=== PATIENT | male | born 1945 | race Caucasian/White ===

== ENCOUNTER 2016-03-15 07:26 | Outpatient (CLI) ==
[2014-11-26 09:33] VITALS: BMI 36.7
[2016-03-15 08:04] LABS: CREATININE 1.41 mg/dL (0.60-1.10)
--- NOTE | 2016-03-15 08:38 | US ---
EXAM: Bilateral carotid artery Doppler History: Dizziness. Technique: Multiple sonographic images through the bilateral internal carotid arteries were obtaine d. Color duplex Doppler was used to interrogate vascular flow. Findings: The right ICA peak systolic velocities within normal limits measuring 1.2 meters per second. The ri ght ICA/cca PSV ratio is normal at 1.7. The right vertebral artery is patent and demonstrates flow. Rhoades scale images demonstrate mild to moderate plaque buildup. The left ICA peak systolic velocities within normal limits measuring 0.8 meters per second. The lef t ICA/cca PSV ratio is normal at 0.9. The left vertebral artery is patent and demonstrates antegrad e flow. Rhoades scale images demonstrate mild plaque buildup. Impression: No significant hemodynamic stenosis of the bilateral internal carotid arteries.
--- NOTE | 2016-03-15 09:27 | CT ---
EXAM: CT head with and without contrast HISTORY: Dizziness COMPARISON: 07/26/2007 TECHNIQUE: CT head performed with and without contrast FINDINGS: There is no mass effect, midline shift, or intracranial hemmorhage. Dunn white different iation is preserved. There is no extra-axial collection. The ventricles, sulci, and basal cisterns are patent and symmetric. There is chronic ischemic disease of the white matter and cerebral volum e loss. There is no depressed calvarial fracture. The mastoid air cells are clear. There is mucous retention cyst or polyp right maxillary sinus. There are intracranial atherosclerotic calcification s. No abnormal area of enhancement. IMPRESSION: 1. No acute intracranial abnormality. No abnormal area of enhancement. 2. Chronic ischemic disease of the white matter and cerebral volume loss. 3. Sinus mucosal changes as described.
== END 2016-03-15 07:27 | disposition home or self-care (01) ==
LOC: RAD 07:26
PROVIDERS: ATTEND Internal Medicine
DX: R42 Dizziness and giddiness (principal)
CPT/HCPCS: 36415; 82565

== ENCOUNTER 2016-07-23 12:25 | Outpatient (CLI) | payer OTHER ==
[2014-11-26 09:33] VITALS: BMI 36.7
--- NOTE | 2016-07-23 13:13 | DI ---
EXAM: Two views of the chest. History: Acute bronchitis. Comparison: Chest radiograph 08/22/2015 Findings: Heart size is within normal limits. No focal consolidation. No appreciable pleural flui d and no pneumothorax. No acute osseous abnormalities. Impression: No acute cardiopulmonary process.
== END 2016-07-23 12:26 | disposition home or self-care (01) ==
LOC: RAD 12:25
PROVIDERS: ATTEND Emergency Medicine
DX: J20.9 Acute bronchitis, unspecified (principal)

== ENCOUNTER 2017-03-13 06:43 | Outpatient (CLI) ==
[2014-11-26 09:33] VITALS: BMI 36.7
--- NOTE | 2017-03-15 13:23 | ECHO2D ---
Date of Exam: 03/13/17 Ordering Physician: MAXIMILIANO GONZALEZ Room #: OP Reason for Echo: SOB, HTN, A-FIB M-Mode Normal Adult Results LV Dimensions Normal Adult Results AoV Opening excursions >1.6 >1.6 LVEDD-base- 3.5-5.8 4.6 Ao root dimensions 2.0-3.7 3.6 LVESD-base- 3.1-4.6 L. Atrium dimensions 1.9-3.8 5.4 Post. Wall thickness 0.8-1.1 1.4 IV septum (thickness) 0.7-1.2 1.3 Post. Wall excursion 0.72-1.3 NORMAL Septal motion NORMAL Systolic motion R. Ventricular cavity 1.5-2.0 NORMAL LVEF 60% 55% Paradoxical septal wall motion NORMAL 2-D : NORMAL LEFT VENTRICULAR CONTRACTILITY--NORMAL VALVES--ENLARGED LEFT ATRIAL CAVITY--NORMAL VALVES-NO EFFUSION, NO THROMBUS M-MODE: MV: NORMAL AV: NORMAL TV: NORMAL PV: CHAMBER SIZE: ENLARGED LEFT ATRIAL CAVITY WALL MOTION: NORMAL PERICARDIUM: NORMAL INTERPRETATION: 1. LEFT VENTRICULAR HYPERTROPHY WITH ENLARGED LEFT ATRIAL CAVITY 2. NORMAL LEFT VENTRICULAR CONTRACTILITY 3. NORMAL VALVES MTDD
== END 2017-03-13 06:44 | disposition home or self-care (01) ==
LOC: CAR 06:43
PROVIDERS: ATTEND Internal Medicine
DX: I48.91 Unspecified atrial fibrillation (principal); R06.02 Shortness of breath; I10 Essential (primary) hypertension
CPT/HCPCS: 93005; 93010

== ENCOUNTER 2017-09-06 13:00 | Outpatient (RCR) ==
[2014-11-26 09:33] VITALS: BMI 36.7
--- NOTE | 2017-08-23 16:23 | RS.OTEVAL ---
Subjective Date of Note: 08/23/17 Visit #: 1 Date of Evaluation: 08/23/17 Payer Source: MEDICARE Date of Onset/Injury/Change in Status: 11/23/13 Surgery Performed?: No Treatment Diagnosis: Shoulder pain Treatment Side (optional): Right *Precautions: At risk for falls Prior Level of Function.....Patient was independent with: ADL's, Self Care, Work /Vocation, Caregiving, Ambulation/Mobility, Community Integration/Access History of Condition/Mechanism of Injury: Possible rotator cuff tear, Rotator cuff Tendinitis Level of Function: (I) Functional Limitations: Reaching, Pulling, Lifting, Carrying Current Complaints/Gains: Pt has increased pain with RUE shoulder flexion. Pt has difficulty luz and doff his shirt, lifting items. Medical History Medical History: Hypertension, Diabetes Medical History Comments:: Pt reports he fell and hurt his right shoulder. He was trying to get the yards mowed and fell against the mower and his shoulder hit the ground. He has DMII, HTN, COPD Surgical History Comments:: Gall Bladder surgery, Femur fracture Patient's Goals: Decreased pain and be able to use the RUE Shoulder Pain Assessment - Pain Description Pain Description: Sharp Pain Location: Right shoulder pain. Increased pain with external rotation and shoulder flexion. Pain Description: sharp pain with movement Current Pain Intensity: 0 Worst Pain Intensity: 8 Other comments regarding pain:: Pt has increased pain with movement. Functional Outcome Measures UE Functional Index: 52 - G Codes & Severity Modifier G Codes: Current - CK. Goal is CI Source of G Code score: Carrying, moving, handling objects Observation - Observation Posture: Rounded Shoulders Handedness: Right Additional Comments: Pt has difficulty with toilet hygiene. Shoulder ROM: Left WFL's Shoulder Muscle Strength: Left WFL's - Right Shoulder ROM Right Shoulder Flexion: 135 Right Shoulder Extension: 46 Right Shoulder Abduction: 55 Right Shoulder Internal Rotation: 58 Right Shoulder External Rotation: 10 Right Shoulder ROM Limitations: Muscle Weakness, Pain - Left Shoulder Strength Left Shoulder Flexion: 4+ Good + Left Shoulder Extension: 4+ Good + Left Shoulder Abduction: 4+ Good + Left Shoulder Adduction: 4+ Good + Left Shoulder External Rotation: 4+ Good + Left Shoulder Internal Rotation: 4+ Good + - Right Shoulder Strength Right Shoulder Flexion: 3- Fair- Right Shoulder Extension: 3- Fair- Right Shoulder Abduction: 3- Fair- Right Shoulder Adduction: 3- Fair- Right Shoulder External Rotation: 2+ Poor+ Right Shoulder Internal Rotation: 3- Fair- Elbow ROM: Bilaterally WFL's Elbow Muscle Strength: Bilaterally WFL's Wrist ROM: Bilaterally WFL's Wrist Muscle Strength: Bilaterally WFL's Stage Driver Strength Left Hand Stage Driver Strength: 84.3# Right Hand Stage Driver Strength: 68.7# Dynamometer Testing Position: 2nd Position Palpation Palpation Findings: Tenderness, Trigger Point Sensation Right Upper Extremity: Intact/Normal Modalities - Treatment Modality: Ultrasound Parameters/Method Applied: .4 w/cm2 for 8 minutes after setup. Treatment Area: RUE Shoulder Patient Position: Sitting - Hot Pack/Cryotherapy Treatment: Cryotherapy Interventions - Exercise/Activities Exercise/Activities/Manual Therapy: Manual therapy to the pectoralis muscle of RUE shoulder. Manual therapy to posterior scapula. HOME EXERCISE PROGRAM: Ice to shoulder 2x day. - Objective Findings Objective Findings:: Pt has edema and pain of the right shoulder. Pt has limited AROM due to pain in the right shoulder. Pt has pain in Ext. Rot. and shoulder flexion. - Charges Timed Code Treatment Minutes: 60 Total Treatment Time: 66 Procedures billed for this date of service:: Eval-medium, MT , US, CP EVALUATION COMPLEXITY LEVEL: HISTORY: Medium, EXAM OF BODY SYSTEMS: Medium, CLINICAL DECISION MAKING: Medium Assessment Assessment: Pt has pain in the right shoulder and decreased functional use of the RUE. Patient Education: Education of diagnosis, Body/Joint mechanics, Home Exercise Program, Education of Plan of Care Rehab Potential: Good Problems/Comments: Difficulty with personal hygiene, difficulty opening a jar, throwing a ball, preparing food, cutting food, lifting groceries, Short Term Goals Goal #1: Decrease (R) shoulder pain to 6/10 at worst with movement. Goal to be met by: 08/30/17 Goal #2: To increase AROM of RUE external rotation to be 25 degrees Goal to be met by: 08/30/17 Goal #3: Pt to be independent with Home exercise program. Goal to be met by: 08/29/17 Goal #4: To increase strength of RUE to be 4-/5. Goal to be met by: 09/06/17 Penitentiary Goals Goal #1: Decrease (R) shoulder pain to 1/10 at worst with movement. Goal to be met by: 09/16/17 Goal #2: To increase AROM of RUE external rotation to be 45 degrees Goal to be met by: 09/16/17 Goal #3: Pt to be independent with Home exercise program. Goal to be met by: 09/16/17 Goal #4: To increase strength of RUE to be 4+/5. Goal to be met by: 09/13/17 Plan - Treatment to be provided Procedures: Therapeutic Exercises, Therapeutic Activity, Neuromuscular Rehab, Manual Therapy, Patient Education Modalities: Electrical Stimulation, Ultrasound/Phonophoresis, Class IV Laser, Cryotherapy, Hot Packs - Treatment Plan Frequency: 2 X week Duration: 3 weeks ORDER # VISITS AND/OR THROUGH DATE: 6 - Treatment Code (1) Shoulder pain, right Code(s): M25.511 - PAIN IN RIGHT SHOULDER Comments: M25.511 Right shoulder pain. (2) Stiffness of right shoulder joint Code(s): M25.611 - STIFFNESS OF RIGHT SHOULDER, NOT ELSEWHERE CLASSIFIED Comments: M25.611 Shoulder stiffness (3) Weakness generalized Code(s): R53.1 - WEAKNESS Comments: R53.1 Weakness
--- NOTE | 2017-08-28 12:57 | RS.OTDNOTE ---
Subjective Date of Note: 08/27/17 Visit #: 2 Date of Evaluation: 08/23/17 Payer Source: MEDICARE Treatment Diagnosis: Shoulder pain *Precautions: At risk for falls Current Complaints/Gains: Pt states he has fallen several times at home and states landing on his UE has caused increased c/o pain. States no pain or trouble with his UE following OT tx x several years ago. Pain Assessment - Pain Description Pain Description: Sharp Pain Location: Right shoulder pain. Increased pain with external rotation and shoulder flexion. Pain Description: sharp pain with movement Modalities - Treatment Modality: Ultrasound Parameters/Method Applied: .04w/cm2 x 10 mins Treatment Area: shoulder Patient Position: Sitting - Hot Pack/Cryotherapy Comments:: CP x 10 mins Interventions - Exercise/Activities Exercise/Activities/Manual Therapy: Manual therapy to the pectoralis muscle/ scapula of RUE with gentle PROM/stretching. Pt ed on and performed isometric ex 's -12/09. HOME EXERCISE PROGRAM: Ice to shoulder 2x day. - Objective Findings Objective Findings:: Pt has edema and pain of the right shoulder. Pt has limited AROM due to pain in the right shoulder. Pt has pain in Ext. Rot. and shoulder flexion. - Charges Timed Code Treatment Minutes: 46 Total Treatment Time: 46 Procedures billed for this date of service:: US CP MT Assessment Patient Education: Education of diagnosis, Body/Joint mechanics, Home Exercise Program, Home Safety, Activity Modification, Education of Plan of Care Patient demonstrates compliance with HEP?: Yes Short Term Goals Goal #1: Decrease (R) shoulder pain to 6/10 at worst with movement. Goal to be met by: 08/30/17 Progress towards goal: Progressing Goal #2: To increase AROM of RUE external rotation to be 25 degrees Goal to be met by: 08/30/17 Progress towards goal: Progressing Goal #3: Pt to be independent with Home exercise program. Goal to be met by: 08/29/17 Progress towards goal: Progressing Goal #4: To increase strength of RUE to be 4-/5. Goal to be met by: 09/06/17 Progress towards goal: Progressing [facility] Goals Goal #1: Decrease (R) shoulder pain to 1/10 at worst with movement. Goal to be met by: 09/16/17 Progress towards goal: Progressing Goal #2: To increase AROM of RUE external rotation to be 45 degrees Goal to be met by: 09/16/17 Progress towards goal: Progressing Goal #3: Pt to be independent with Home exercise program. Goal to be met by: 09/16/17 Progress towards goal: Progressing Goal #4: To increase strength of RUE to be 4+/5. Goal to be met by: 09/13/17 Progress towards goal: Progressing Plan PLAN OF CARE EXPIRES ON:: 09/16/17 ORDER # VISITS AND/OR THROUGH DATE: 6 PLAN: Cont POC to increase AROM/strength with decreased c/o pain.
--- NOTE | 2017-08-30 16:03 | RS.OTDNOTE ---
Subjective Date of Note: 08/30/17 Visit #: 3 Date of Evaluation: 08/23/17 Payer Source: MEDICARE Treatment Diagnosis: Shoulder pain *Precautions: At risk for falls Current Complaints/Gains: Pt states some decrease of pain. Pain Assessment - Pain Description Pain Description: Sharp Pain Location: Right shoulder pain. Increased pain with external rotation and shoulder flexion. Pain Description: sharp pain with movement Current Pain Intensity: 3 Worst Pain Intensity: 6 Modalities - Treatment Modality: Ultrasound Parameters/Method Applied: .04w/cm2 Patient Position: Sitting - Hot Pack/Cryotherapy Treatment: Cryotherapy (x10 mins following tx) Interventions - Exercise/Activities Exercise/Activities/Manual Therapy: Manual therapy to the pectoralis muscle/ scapula of RUE with gentle PROM/stretching. Pt ed on and performed isometric ex 's 12/09. HOME EXERCISE PROGRAM: Ice to shoulder 2x day. - Objective Findings Objective Findings:: Pt has edema and pain of the right shoulder. Pt has limited AROM due to pain in the right shoulder. Pt has pain in Ext. Rot. and shoulder flexion. - Charges Timed Code Treatment Minutes: 49 Total Treatment Time: 49 Procedures billed for this date of service:: CP US MT Assessment Patient Education: Education of diagnosis, Body/Joint mechanics, Home Exercise Program, Home Safety, Activity Modification, Education of Plan of Care Patient demonstrates compliance with HEP?: Yes Short Term Goals Goal #1: Decrease (R) shoulder pain to 6/10 at worst with movement. Goal to be met by: 08/30/17 Progress towards goal: Met Goal #2: To increase AROM of RUE external rotation to be 25 degrees Goal to be met by: 08/30/17 Progress towards goal: Progressing Goal #3: Pt to be independent with Home exercise program. Goal to be met by: 08/29/17 Progress towards goal: Progressing Goal #4: To increase strength of RUE to be 4-/5. Goal to be met by: 09/06/17 Progress towards goal: Progressing [facility] [place] Goals Goal #1: Decrease (R) shoulder pain to 1/10 at worst with movement. Goal to be met by: 09/16/17 Progress towards goal: Progressing Goal #2: To increase AROM of RUE external rotation to be 45 degrees Goal to be met by: 09/16/17 Progress towards goal: Progressing Goal #3: Pt to be independent with Home exercise program. Goal to be met by: 09/16/17 Progress towards goal: Progressing Goal #4: To increase strength of RUE to be 4+/5. Goal to be met by: 09/13/17 Progress towards goal: Progressing Plan PLAN OF CARE EXPIRES ON:: 09/16/17 ORDER # VISITS AND/OR THROUGH DATE: 6 PLAN: cont current POC to max fx I, strength and AROM of R UE
--- NOTE | 2017-09-03 15:03 | RS.OTDNOTE ---
Subjective Date of Note: 09/03/17 Visit #: 4 Date of Evaluation: 08/23/17 Payer Source: MEDICARE Treatment Diagnosis: Shoulder pain *Precautions: At risk for falls Current Complaints/Gains: Pt states he is able to tuck his shirt in but is stil unable to reach for his wallet without an increase of pain. Pain Assessment - Pain Description Pain Description: Tightness, Dull Pain Location: Right shoulder pain. Increased pain with external rotation and shoulder flexion. Pain Description: sharp pain with movement Current Pain Intensity: 2 Worst Pain Intensity: 4-5 Modalities - Treatment Modality: Ultrasound Parameters/Method Applied: 1.5w/cm2 x 12 mins Patient Position: Sitting - Hot Pack/Cryotherapy Treatment: Cryotherapy Comments:: CP X15 mins following tx Interventions - Exercise/Activities Exercise/Activities/Manual Therapy: Manual therapy to the pectoralis muscle/ scapula of RUE with gentle PROM/stretching. Pt ed on and performed isometric ex 's 12/09. HOME EXERCISE PROGRAM: Ice to shoulder 2x day. - Objective Findings Objective Findings:: Pt has edema and pain of the right shoulder. Pt has limited AROM due to pain in the right shoulder. Pt has pain in Ext. Rot. and shoulder flexion. - Charges Timed Code Treatment Minutes: 50 Total Treatment Time: 63 Procedures billed for this date of service:: CP US EX MT Assessment Patient Education: Education of diagnosis, Body/Joint mechanics, Home Exercise Program, Home Safety, Activity Modification, Education of Plan of Care Patient demonstrates compliance with HEP?: Yes Short Term Goals Goal #1: Decrease (R) shoulder pain to 6/10 at worst with movement. Goal to be met by: 08/30/17 Progress towards goal: Met Goal #2: To increase AROM of RUE external rotation to be 25 degrees Goal to be met by: 08/30/17 Progress towards goal: Partially Met Goal #3: Pt to be independent with Home exercise program. Goal to be met by: 08/29/17 Progress towards goal: Partially Met Goal #4: To increase strength of RUE to be 4-/5. Goal to be met by: 09/06/17 Progress towards goal: Met Alf Goals Goal #1: Decrease (R) shoulder pain to 1/10 at worst with movement. Goal to be met by: 09/16/17 Progress towards goal: Progressing Goal #2: To increase AROM of RUE external rotation to be 45 degrees Goal to be met by: 09/16/17 Progress towards goal: Progressing Goal #3: Pt to be independent with Home exercise program. Goal to be met by: 09/16/17 Progress towards goal: Progressing Goal #4: To increase strength of RUE to be 4+/5. Goal to be met by: 09/13/17 Progress towards goal: Progressing Plan PLAN OF CARE EXPIRES ON:: 09/16/17 ORDER # VISITS AND/OR THROUGH DATE: 6 PLAN: Cont per POC x 2 tx sesions
--- NOTE | 2017-09-06 13:56 | RS.OTDNOTE ---
Subjective Date of Note: 09/06/17 Visit #: 5 Date of Evaluation: 08/23/17 Payer Source: MEDICARE Treatment Diagnosis: Shoulder pain *Precautions: At risk for falls Current Complaints/Gains: Pt states his motion is better and he can now reach and pull/push the lever for the recliner. Pain Assessment - Pain Description Pain Description: Tightness, Dull Pain Location: Right shoulder pain. Increased pain with external rotation and shoulder flexion. Pain Description: sharp pain with movement Current Pain Intensity: 0 Worst Pain Intensity: 2-3 Modalities - Treatment Modality: Ultrasound Parameters/Method Applied: 1.5w/cm2 x 10 mins Patient Position: Sitting - Hot Pack/Cryotherapy Treatment: Cryotherapy (CP x 10 mins following tx) Interventions - Exercise/Activities Exercise/Activities/Manual Therapy: Manual therapy to the pectoralis muscle/ scapula of RUE with gentle PROM/stretching. Pt ed on and performed isometric ex 's 12/09. Red t-band ex of retraction and ER/IR performed x 12/09 this date with pt ed on HEP. HOME EXERCISE PROGRAM: Ice to shoulder 2x day. - Objective Findings Objective Findings:: Pt has edema and pain of the right shoulder. Pt has limited AROM due to pain in the right shoulder. Pt has pain in Ext. Rot. and shoulder flexion. - Charges Timed Code Treatment Minutes: 38 Total Treatment Time: 48 Procedures billed for this date of service:: CP US EX Assessment Patient Education: Education of diagnosis, Body/Joint mechanics, Home Exercise Program, Home Safety, Activity Modification, Education of Plan of Care Patient demonstrates compliance with HEP?: Yes Short Term Goals Goal #1: Decrease (R) shoulder pain to 6/10 at worst with movement. Goal to be met by: 08/30/17 Progress towards goal: Met Goal #2: To increase AROM of RUE external rotation to be 25 degrees Goal to be met by: 08/30/17 Progress towards goal: Met Goal #3: Pt to be independent with Home exercise program. Goal to be met by: 08/29/17 Progress towards goal: Partially Met Goal #4: To increase strength of RUE to be 4-/5. Goal to be met by: 09/06/17 Progress towards goal: Met Assisted Goals Goal #1: Decrease (R) shoulder pain to 1/10 at worst with movement. Goal to be met by: 09/16/17 Progress towards goal: Progressing Goal #2: To increase AROM of RUE external rotation to be 45 degrees Goal to be met by: 09/16/17 Progress towards goal: Partially Met Goal #3: Pt to be independent with Home exercise program. Goal to be met by: 09/16/17 Progress towards goal: Partially Met Goal #4: To increase strength of RUE to be 4+/5. Goal to be met by: 09/13/17 Progress towards goal: Partially Met Plan PLAN OF CARE EXPIRES ON:: 09/16/17 ORDER # VISITS AND/OR THROUGH DATE: 6 PLAN: Cont x1 tx session and DC pt I with HEP.
== END 2017-09-07 23:59 ==
PROVIDERS: ATTEND Orthopaedic Surgery
DX: M75.101 Unspecified rotator cuff tear or rupture of right shoulder, not specified as traumatic (principal); M75.81 Other shoulder lesions, right shoulder

== ENCOUNTER 2017-09-24 13:00 | Outpatient (RCR) ==
[2014-11-26 09:33] VITALS: BMI 36.7
--- NOTE | 2017-09-09 14:10 | RS.OTDNOTE ---
Subjective Date of Note: 09/09/17 Visit #: 6 Date of Evaluation: 08/23/17 Payer Source: MEDICARE Treatment Diagnosis: Shoulder pain *Precautions: At risk for falls Current Complaints/Gains: Pt states UE feels better but states he still does have some trouble with reaching into his pocket for car keys and his wallet. States and agrees to asking for additional visit approval from MD with vm left this date. Pain Assessment - Pain Description Pain Description: Tightness, Dull, Throbbing, Aching Pain Location: Right shoulder pain. Increased pain with external rotation and shoulder flexion. Pain Description: sharp pain with movement Current Pain Intensity: 0 Worst Pain Intensity: 6 Modalities - Treatment Modality: Ultrasound Parameters/Method Applied: 1.5w/cm2 x `10 mins to AC joint and deltoids Treatment Area: shoulder Patient Position: Sitting - Hot Pack/Cryotherapy Treatment: Cryotherapy Comments:: CP x 10 mins following therapy Interventions - Exercise/Activities Exercise/Activities/Manual Therapy: Manual therapy to the pectoralis muscle/ scapula of RUE with gentle PROM/stretching. Pt ed on and performed isometric ex 's 12/10. Red t-band ex of retraction and ER/IR performed x 12/10 this date with pt ed on HEP including door frame stretches and towell stretch (IR/ER) behind his back. HOME EXERCISE PROGRAM: Ice to shoulder 2x day. - Objective Findings Objective Findings:: Pt has edema and pain of the right shoulder. Pt has limited AROM due to pain in the right shoulder. Pt has pain in Ext. Rot. and shoulder flexion. - Charges Timed Code Treatment Minutes: 49 Total Treatment Time: 57 Procedures billed for this date of service:: CP US MT EX Assessment Patient Education: Education of diagnosis, Body/Joint mechanics, Home Exercise Program, Home Safety, Activity Modification, Education of Plan of Care Patient demonstrates compliance with HEP?: Yes Short Term Goals Goal #1: Decrease (R) shoulder pain to 6/10 at worst with movement. Goal to be met by: 08/30/17 Progress towards goal: Met Goal #2: To increase AROM of RUE external rotation to be 25 degrees Goal to be met by: 08/30/17 Progress towards goal: Met Goal #3: Pt to be independent with Home exercise program. Goal to be met by: 08/29/17 Progress towards goal: Partially Met Goal #4: To increase strength of RUE to be 4-/5. Goal to be met by: 09/06/17 Progress towards goal: Met Reporting Specialist Goals Goal #1: Decrease (R) shoulder pain to 1/10 at worst with movement. Goal to be met by: 09/16/17 Progress towards goal: Progressing Goal #2: To increase AROM of RUE external rotation to be 45 degrees Goal to be met by: 09/16/17 Progress towards goal: Partially Met Goal #3: Pt to be independent with Home exercise program. Goal to be met by: 09/16/17 Progress towards goal: Partially Met Goal #4: To increase strength of RUE to be 4+/5. Goal to be met by: 09/13/17 Progress towards goal: Partially Met Plan PLAN OF CARE EXPIRES ON:: 09/16/17 ORDER # VISITS AND/OR THROUGH DATE: 6 PLAN: Voicemail left at MD office for additional order/visits
--- NOTE | 2017-09-10 10:10 | RS.OTCNOTE ---
OT Case Note Date of Note: 09/10/17 Title: New Orders for 2X wk for 3 WKS Note: Occupational therapy requested orders for patient to continue with outpatient shoulder therapy 2X wk x 3 Wks to decrease his pain and increase his abduction and extension of RUE shoulder. Pt orders to continue through October.
--- NOTE | 2017-09-13 14:33 | RS.OTDNOTE ---
Subjective Date of Note: 09/13/17 Visit #: 7 Date of Evaluation: 08/23/17 Payer Source: MEDICARE Treatment Diagnosis: Shoulder pain *Precautions: At risk for falls Current Complaints/Gains: Pain in shoulder with RUE shoulder extension at 2/10. Pt reported it just felt sore with when he pulls his arm back. The sharp pain is not sharp any more. Pt tolerated manual therapy to the Teres major muscle, subscapularis muscles, Deltoid. Pt pain decreased to 0/10 until he moved into RUE shoulder extension and then it was just soreness. Pain Assessment - Pain Description Pain Description: Tightness, Dull, Throbbing, Aching Pain Location: Right shoulder pain. Increased pain with external rotation and shoulder flexion. Pain Description: sharp pain with movement Current Pain Intensity: 2 Worst Pain Intensity: 4 Modalities - Treatment Modality: Ultrasound Parameters/Method Applied: .4 w/cm2 to the RUE teres major, subscapularis for 8 minutes. Treatment Area: RUE teres major, subscapularis Patient Position: Sitting - Hot Pack/Cryotherapy Treatment: Hot Pack Interventions - Exercise/Activities Exercise/Activities/Manual Therapy: Manual therapy to the Teres minor, subscapularis, & Deltoid. Pt reaching for ceiling with RUE to complete extension. Reaching behind himself to put his RUE in his back pocket. HOME EXERCISE PROGRAM: Ice to shoulder 2x day. - Objective Findings Objective Findings:: Pt has edema and pain of the right shoulder. Pt has limited AROM due to pain in the right shoulder. Pt has pain in Ext. Rot. and shoulder flexion. - Charges Timed Code Treatment Minutes: 60 Total Treatment Time: 65 Procedures billed for this date of service:: US, HP, MT x 2 Assessment Assessment: Pt reported it felt better following treatment. He reported he was a little sore but he thought it was better. Problems/Comments: Pt reports that his shoulder continues to get better. He has some pain that is a 2/10 in his RUE shoulder when he moves in shoulder extension and abduction, and flexion. Patient demonstrates compliance with HEP?: Yes Short Term Goals Goal #1: Decrease (R) shoulder pain to 6/10 at worst with movement. Goal to be met by: 08/30/17 Progress towards goal: Met Goal #2: To increase AROM of RUE external rotation to be 25 degrees Goal to be met by: 08/30/17 Progress towards goal: Met Goal #3: Pt to be independent with Home exercise program. Goal to be met by: 08/29/17 Progress towards goal: Partially Met Goal #4: To increase strength of RUE to be 4-/5. 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 Goal to be met by: 09/16/17 Progress towards goal: Progressing Goal #2: To increase AROM of RUE external rotation to be 45 degrees Goal to be met by: 09/16/17 Progress towards goal: Partially Met Goal #3: Pt to be independent with Home exercise program. Goal to be met by: 09/16/17 Progress towards goal: Partially Met Goal #4: To increase strength of RUE to be 4+/5. Goal to be met by: 09/13/17 Progress towards goal: Partially Met Plan PLAN OF CARE EXPIRES ON:: 10/09/17 ORDER # VISITS AND/OR THROUGH DATE: 5 PLAN: Pt to increase RUE to have AROM WFL. Pt is improving in AROM of RUE and increase in his strength to 4+/5.
--- NOTE | 2017-09-18 08:29 | RS.OTDNOTE ---
Subjective Date of Note: 09/17/17 Visit #: 8 Date of Evaluation: 08/23/17 Payer Source: MEDICARE Treatment Diagnosis: Shoulder pain *Precautions: At risk for falls Current Complaints/Gains: States UE is better but he still has trouble with tucking his shirt into his pants. Pain Assessment - Pain Description Pain Description: Tightness, Dull, Throbbing, Aching Pain Location: Right shoulder pain. Increased pain with external rotation and shoulder flexion. Pain Description: sharp pain with movement Modalities - Treatment Modality: US with ES (Comb.) Parameters/Method Applied: x10 mins to pt tolerance(Estim)-US at 1.5w/cm2 Treatment Area: shoulder Patient Position: Sitting - Hot Pack/Cryotherapy Treatment: Cryotherapy (CP x 10 mins) Interventions - Exercise/Activities Exercise/Activities/Manual Therapy: Manual therapy to the Teres minor, subscapularis, & Deltoid. Pt reaching for ceiling with RUE to complete extension. Reaching behind himself to put his RUE in his back pocket. PROM/ gentle prolonged stretching performed. HOME EXERCISE PROGRAM: Ice to shoulder 2x day. - Objective Findings Objective Findings:: Pt demo good improvement with AROM and decreased c/o pain. - Charges Timed Code Treatment Minutes: 42 Total Treatment Time: 52 Procedures billed for this date of service:: CP US-combo MT Assessment Patient Education: Education of diagnosis, Body/Joint mechanics, Home Exercise Program, Home Safety, Activity Modification, Education of Plan of Care Patient demonstrates compliance with HEP?: Yes Short Term Goals Goal #1: Decrease (R) shoulder pain to 6/10 at worst with movement. Goal to be met by: 08/30/17 Progress towards goal: Met Goal #2: To increase AROM of RUE external rotation to be 25 degrees Goal to be met by: 08/30/17 Progress towards goal: Met Goal #3: Pt to be independent with Home exercise program. Goal to be met by: 08/29/17 Progress towards goal: Met Goal #4: To increase strength of RUE to be 4-/5. 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 Goal to be met by: 10/09/17 Progress towards goal: Progressing Goal #2: To increase AROM of RUE external rotation to be 45 degrees Goal to be met by: 10/09/17 Progress towards goal: Partially Met Goal #3: Pt to be independent with Home exercise program. Goal to be met by: 10/09/17 Progress towards goal: Partially Met Comments: PRE's Goal #4: To increase strength of RUE to be 4+/5. Goal to be met by: 09/13/17 Progress towards goal: Partially Met Plan PLAN OF CARE EXPIRES ON:: 10/09/17 ORDER # VISITS AND/OR THROUGH DATE: 12 PLAN: Pt making great progress. Pt received continuation orders on 09/09/17. Pt orders extended to 10/09/17 or 12 visits.
--- NOTE | 2017-09-20 15:57 | RS.OTDNOTE ---
Subjective Date of Note: 09/20/17 Visit #: 9 Date of Evaluation: 08/23/17 Payer Source: MEDICARE Treatment Diagnosis: Shoulder pain *Precautions: At risk for falls Current Complaints/Gains: Soreness in the deltoid when he reaches behind himself to put his wallet in his pocket. Pain Assessment - Pain Description Pain Description: Tightness, Dull, Throbbing, Aching Pain Location: Right shoulder pain. Increased pain with external rotation and shoulder flexion. Pain Description: sharp pain with movement Current Pain Intensity: 3 Other comments regarding pain:: He reports it's getting better. Modalities - Treatment Modality: US with ES (Comb.) Parameters/Method Applied: 1.5 w/cm2 for 8 minutes at 22 m/amps to deltoid. Treatment Area: RUE deltoid muscle. Patient Position: Supine Interventions - Exercise/Activities Exercise/Activities/Manual Therapy: Manual therapy to the Teres minor, subscapularis, & Deltoid. Pt reaching for ceiling with RUE to complete extension. Reaching behind himself to put his RUE in his back pocket. PROM/ gentle prolonged stretching performed. HOME EXERCISE PROGRAM: Ice to shoulder 2x day. - Objective Findings Objective Findings:: Pt demo good improvement with AROM and decreased c/o pain. - Charges Timed Code Treatment Minutes: 62 Total Treatment Time: 62 Procedures billed for this date of service:: US combo, MT x 3 Assessment Assessment: Pt reports his RUE is improving. He still has some soreness in the RUE. Patient Education: Education of diagnosis, Home Exercise Program, Education of Plan of Care Problems/Comments: Pt has soreness with RUE shoulder extension. Patient demonstrates compliance with HEP?: Yes Short Term Goals Goal #1: Decrease (R) shoulder pain to 6/10 at worst with movement. Goal to be met by: 08/30/17 Progress towards goal: Met Goal #2: To increase AROM of RUE external rotation to be 25 degrees Goal to be met by: 08/30/17 Progress towards goal: Met Goal #3: Pt to be independent with Home exercise program. Goal to be met by: 08/29/17 Progress towards goal: Met Goal #4: To increase strength of RUE to be 4-/5. Goal to be met by: 09/06/17 Progress towards goal: Met Supervisor Customer Complaint Service Goals Goal #1: Decrease (R) shoulder pain to 1/10 at worst with movement. Goal to be met by: 10/09/17 Progress towards goal: Progressing Goal #2: To increase AROM of RUE external rotation to be 45 degrees Goal to be met by: 10/09/17 Progress towards goal: Partially Met Goal #3: Pt to be independent with Home exercise program. Goal to be met by: 10/09/17 Progress towards goal: Partially Met Goal #4: To increase strength of RUE to be 4+/5. Goal to be met by: 09/13/17 Progress towards goal: Partially Met Plan PLAN OF CARE EXPIRES ON:: 10/04/17 ORDER # VISITS AND/OR THROUGH DATE: 12 PLAN: To get the RUE shoudler pain free and have full RUE shoulder flexion and be able to use with full AROM.
--- NOTE | 2017-09-25 15:43 | RS.OTDCSUM ---
Subjective Date of Discharge: 09/24/17 Date of Evaluation: 08/23/17 Number of Visits: 11 Treatment Diagnosis: Right shoulder apin Current Level of Function: 13% impaired Current Complaints/Gains: Pt reports therapy has really helped him. He states he could not reach is head prior to therapy. He states his pain at 2/10 when it bothers him the most. Pain Assessment - Pain Description Pain Description: Tightness, Dull, Throbbing, Aching Pain Location: Right shoulder pain. Increased pain with external rotation and shoulder flexion. Pain Description: sharp pain with movement Current Pain Intensity: 0 Worst Pain Intensity: 2 Functional Outcome Measures UE Functional Index: 13 - G Codes & Severity Modifier G Codes: Goal was CI, Discharge was CI. Source of G Code score: Carry, moving, and handling objects Observation - Observation Posture: Forward Head Handedness: Right Shoulder ROM: Bilaterally WFL's Shoulder Muscle Strength: Bilaterally WFL's Elbow ROM: Bilaterally WFL's Elbow Muscle Strength: Bilaterally WFL's Wrist ROM: Bilaterally WFL's Wrist Muscle Strength: Bilaterally WFL's Palpation Palpation Findings: Tenderness Comments:: Tenderness with RUE shoulder extension. Sensation Left Upper Extremity: Intact/Normal Sensation Description: Within Normal Limits Interventions - Exercise/Activities Exercise/Activities/Manual Therapy: Pt reaching for ceiling with RUE to complete extension. Reaching behind himself to put his RUE in his back pocket and towel stretch for ER/IR PROM/gentle prolonged stretching performed. HOME EXERCISE PROGRAM: Ice to shoulder 2x day. - Other Treatment/Services Treatment Details: Pt has met 4/4 STG's and 3/4 LTGs. Pt has pain with RUE shoulder extension. - Objective Findings Objective Findings:: Pt demo good improvement with AROM and decreased c/o pain. - Charges Timed Code Treatment Minutes: . Total Treatment Time: . Procedures billed for this date of service:: . Assessment Assessment: Pt has made great progress toward his goals. Pt has met 4/4 Short term goals. 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 Patient Education: Education of diagnosis, Body/Joint mechanics, Home Exercise Program, Home Safety, Education of Plan of Care Rehab Potential: Good Problems/Comments: Pt continues with 2/10 pain when he completes RUE shoulder extension to reach in his back pocket. Short Term Goals Goal #1: Decrease (R) shoulder pain to 6/10 at worst with movement. Goal to be met by: 08/30/17 Progress towards goal: Met Goal #2: To increase AROM of RUE external rotation to be 25 degrees Goal to be met by: 08/30/17 Progress towards goal: Met Goal #3: Pt to be independent with Home exercise program. Goal to be met by: 08/29/17 Progress towards goal: Met Goal #4: To increase strength of RUE to be 4-/5. 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 Goal to be met by: 10/09/17 Progress towards goal: Progressing Goal #2: To increase AROM of RUE external rotation to be 45 degrees Goal to be met by: 10/09/17 Progress towards goal: Met Goal #3: Pt to be independent with Home exercise program. Goal to be met by: 10/09/17 Progress towards goal: Met Goal #4: To increase strength of RUE to be 4+/5. Goal to be met by: 09/13/17 Progress towards goal: Met Plan Reason for Discharge:: All Goals Met (Pt is ready to be discharged.)
== END 2017-10-08 23:59 ==
PROVIDERS: ATTEND Orthopaedic Surgery
DX: M75.101 Unspecified rotator cuff tear or rupture of right shoulder, not specified as traumatic (principal); M75.81 Other shoulder lesions, right shoulder

== ENCOUNTER 2017-11-05 11:29 | Outpatient (CLI) | payer OTHER ==
[2014-11-26 09:33] VITALS: BMI 36.7
--- NOTE | 2017-11-05 12:42 | CT ---
EXAM: CT of the abdomen pelvis without contrast History: Right flank pain. Comparison: CT abdomen pelvis 11/26/2014 Technique: Multiplanar CT images through the abdomen pelvis were obtained without the administration of IV contrast. Findings: Coronary calcifications. Subsegmental atelectasis seen within the lower lungs. No acute osseous abnormalities. Status post cholecystectomy. No focal liver or splenic lesions. Mild circumferential wall thickenin g of the distal esophagus. There is minimal stranding seen adjacent to the pancreatic body. Adrenal g lands are unremarkable. Multiple left renal calculi with the largest measuring 4 mm. A few punctate 1 mm right renal calculi. Small bilateral renal cysts again noted. No ureteral calculi and no hydr onephrosis. No dilated loops of bowel. No free air and no ascites. Bladder is not well distended. Mild circumferential bladder wall thickening but the bladder is not well distended. Prostate is not s ignificantly enlarged. Small fat-containing bilateral inguinal hernias. Colonic diverticulosis. Th e appendix is normal. No free air and no ascites. Impression: 1. Nonobstructing bilateral nephrolithiasis. 2. Colonic diverticulosis with no CT evidence for diverticulitis. 3. Mild circumferential wall thickening of the distal esophagus. Consider correlation with nonemerg ent upper endoscopy to evaluate for esophagitis. 4. Mild circumferential bladder wall thickening probably related to the underdistended state but can not exclude cystitis. 5. Minimal stranding seen adjacent to the pancreatic body could represent scarring or early changes of pancreatitis. Correlate with pancreatic enzymes. 6. Fat-containing bilateral inguinal hernias.
== END 2017-11-05 11:30 | disposition home or self-care (01) ==
LOC: RAD 11:29
PROVIDERS: ATTEND Internal Medicine
DX: R10.9 Unspecified abdominal pain (principal)
CPT/HCPCS: 74176; 81001

== ENCOUNTER 2017-12-30 11:25 | Day surgery (SDC) ==
[2014-11-26 09:33] VITALS: BMI 36.7
[2017-12-30 11:41] VITALS: TEMP 97.8
[2017-12-30] MEDS ORDERED: LIDOCAINE 1% 20 ML MDV ID STA (11:42)
[2017-12-30] MEDS ORDERED: DIPRIVAN 20 ML VIAL IVP ONE (11:53)
[2017-12-30] MEDS ORDERED: VERSED ONE (11:53)
[2017-12-30] MEDS ORDERED: SUBLIMAZE ONE (11:53)
[2017-12-30 14:18] VITALS: BP 132/67
--- NOTE | 2017-12-31 10:21 | OP ---
PROCEDURE: EGD (ESOPHAGOGASTRODUODENOSCOPY). ENDOSCOPIST: Ben LOPEZ M.D. INDICATION: ABNORMAL CT. INSTRUMENT: [id number]. MEDICATION: PER ANESTHESIA. PROCEDURE: The patient was positioned for endoscopy. The oropharynx was intubated with the endoscope and advanced throught the oropharynx into the esophagus and from there to the duodenum. The duodenum was grossly normal. The pylorus was patent. The antrum was normal. The retroflex exam reveals a normal cardia. The distal esophagus was normal. Specifically, no evidence for mass or constricting lesion. The Z-line was at 43 cm. He tolerated the procedure without immediate complication. PLAN: 1. Repeat as needed. CC: DR. LISA GREEN
== END 2017-12-30 13:15 | disposition home or self-care (01) ==
LOC: SURG 11:25
PROVIDERS: ATTEND Internal Medicine Gastroenterology
DX: R93.89 Abnormal findings on diagnostic imaging of other specified body structures (principal)

== ENCOUNTER 2018-05-06 13:55 | Emergency (ER) ==
[2018-05-06 14:01] VITALS: BP 177/82; TEMP 97.7; BMI 42.6
--- NOTE | 2018-05-06 14:45 | ED.PDOC ---
General ED Provider: Dr. PARIS SPAULDING Chief Complaint: Palpitations Stated Complaint: Chest palpitation/chest vibration. Patient states he experiences a feeling like there is a sensation of a vibration in the left side of his chest. He states this has occurred intermittently for over 1 year but today it felt stronger and lasted longer. Denies nausea or dyspnea but felt dizz states he was a little dizzy. States earlier today at Dr Paige office for blood test and mentioned his symptoms and was told to go to the ER Time Seen by Physician: 14:25 Mode of Arrival: Walk-In Information Source: Patient Exam Limitations: No limitations Primary Care Provider: MAXIMILIANO GONZALEZ Nursing and Triage Documentation Reviewed and Agree: Yes Does patient meet sepsis criteria?: No System Inflammatory Response Syndrome: Not Applicable Sepsis Protocol: For patient's 13 years and over: Temp is 96.8 and below OR 101 and greater Pulse >90 BPM Resp >20/minute Acutely Altered Mental Status Are patient's symptoms suggestive of a new infection, such as: -Pneumonia -Skin, Soft Tissue -Endocarditis -UTI -Bone, Joint Infection -Implantable Device -Acute Abdominal Infection -Wound Infection -Meningitis -Blood Stream Catheter Infection -Unknown Review of Systems - Review Of Systems Constitutional: Reports: No symptoms Eyes: Reports: No symptoms Ears, Nose, Mouth, Throat: Reports: No symptoms Respiratory: Reports: No symptoms Cardiac: Reports: No symptoms, Other (Chest vibration sensation ) GI: Reports: No symptoms : Reports: No symptoms Musculoskeletal: Reports: No symptoms Skin: Reports: No symptoms Neurological: Reports: No symptoms Endocrine: Reports: No symptoms Hematologic/Lymphatic: Reports: No symptoms All Other Systems: Reviewed and Negative Past Medical History - Past Medical History Endocrine: Reports: DM 2, Dyslipidemia Cardiovascular: Reports: CAD, [place], Hypertension, A-Fib Respiratory: Reports: None Hematological: Reports: None Gastrointestinal: Reports: None Genitourinary: Reports: Kidney stones Neuro/Psych: Reports: None Musculoskeletal: Reports: None Cancer: Reports: None - Surgical History General Surgical History: Reports: Orthopedic - Family History Family History: Reports: Unknown - Social History Smoking Status: Never smoker Hx Substance Use: No Alcohol Screening: None Physical Exam - Physical Exam Appearance: Well-appearing, No pain distress, Well-nourished Eyes: NAOMIE, EOMI, Conjunctiva clear ENT: Ears normal, Nose normal, Oropharynx normal Respiratory: Airway patent, Breath sounds clear, Breath sounds equal, Respirations nonlabored Cardiovascular: Pulses normal, No rub, No murmur, Irregular rhythm (no palpable abnormality of chest) GI/: Soft, Nontender, No masses, Bowel sounds normal, No Organomegaly Musculoskeletal: Normal strength, ROM intact, No edema, No calf tenderness Skin: Warm, Dry, Normal color Neurological: Sensation intact, Motor intact, Reflexes intact, Cranial nerves intact, Alert, Oriented Psychiatric: Affect appropriate, Mood appropriate Interpretation - Radiology Interpretation Radiology Interpretation By: Radiologist Radiology Results: Negative Exam Interpreted: CXR - EKG Interpretation Time of EKG #1: 14:00 Rhythm: Other (a fib controlled VR) Critical Care Note - Critical Care Note Total Time (mins): 60 Course - Course Hematology/Chemistry: 05/06/18 15:00 05/06/18 15:00 Orders, Labs, Meds: Lab Review 05/06/18 05/06/18 05/06/18 15:00 15:00 15:00 WBC 10.55 H RBC 5.24 Hgb 15.0 Hct 46.6 MCV 88.9 MCH 28.6 MCHC 32.2 RDW Coeff of Niall 13.9 Plt Count 205 Immature Gran % (Auto) 0.5 Neut % (Auto) 67.2 Lymph % (Auto) 22.8 Aurora % (Auto) 7.2 Eos % (Auto) 1.5 Baso % (Auto) 0.8 Immature Gran # (Auto) 0.1 Neut # (Auto) 7.1 H Lymph # (Auto) 2.4 Aurora # (Auto) 0.8 Eos # (Auto) 0.2 Baso # (Auto) 0.1 PT 23.5 H INR 2.41 Sodium 138.8 Potassium 4.07 Chloride 97.4 L Carbon Dioxide 29.7 Anion Gap 15.77 BUN 21.3 H Creatinine 1.35 H Estimated GFR (MDRD) 52.00 BUN/Creatinine Ratio 15.77 Glucose 242.6 H Calcium 9.15 Total Bilirubin 0.73 AST 20.5 ALT 20.2 Alkaline Phosphatase 92.3 Total Creatine Kinase 65.1 Troponin I < 0.012 Total Protein 7.35 Albumin 4.35 Globulin 3.00 Albumin/Globulin Ratio 1.45 Orders Category Date Time Status EKG-(ED ONLY) Stat CARDIO 05/06/18 15:23 Completed CBC W/ AUTO DIFF Stat LAB 05/06/18 15:00 Completed CMP [COMPREHENSIVE METABOLIC PANEL] Stat LAB 05/06/18 15:00 Completed CPK [CREATINE KINASE] Stat LAB 05/06/18 15:00 Completed PT WITH INR Stat LAB 05/06/18 15:00 Completed TROPONIN I Stat LAB 05/06/18 15:00 Completed CHEST, 2 VIEWS PA & LAT Stat RADS 05/06/18 14:46 Completed Vital Signs: Temp Pulse Resp BP Pulse Ox 05/06/18 13:56 97.7 F 71 20 177/82 H 92 L TERRENCE Risk Score TERRENCE Risk Score: Risk Score Odds of by 30D 0 0.1 (0.1-0.2) 1 0.3 (0.2-0.3) 2 0.4 (0.3-0.5) 3 0.7 (0.6-0.9) 4 1.2 (1.0-1.5) 5 2.2 (1.9-2.6) 6 3.0 (2.5-3.6) 7 4.8 (3.8-6.1) Departure - Departure Time of Disposition: 18:30 Disposition: HOME SELF-CARE Discharge Problem: Atrial fibrillation, Chest discomfort Instructions: A-fib (Atrial Fibrillation) (ED), Chest Pain (ED) Condition: Good Pt referred to PMD for follow-up: Yes (next week) IPMP verified?: No Additional Instructions: Remain on existing meds See Dr Gonzalez in next week for additional evaluation of chest vibration sensation Allergies/Adverse Reactions: Allergies No Known Allergies Allergy (Verified 05/06/18 14:01) Home Medications: Ambulatory Orders Alprazolam [Xanax] 0.5 mg PO BEDTIME PRN 09/19/14 Digoxin 250 mcg PO DAILY 09/19/14 Insulin Glargine,Hum.rec.anlog [Lantus Solostar] 120 unit SQ BEDTIME 09/19/14 Pravastatin Sodium [Pravachol] 40 mg PO BEDTIME 09/19/14 Tamsulosin HCl [Flomax] 0.4 mg PO DAILY 09/19/14 Warfarin Sodium [Coumadin] 6 mg PO DAILY 09/19/14 Furosemide [Lasix Tab] 20 mg PO QDAC 11/26/14 Levothyroxine Sodium [Synthroid] 25 mcg PO QDAC 11/26/14 Metoprolol Tartrate [Lopressor] 50 mg PO BID 11/26/14 Pantoprazole Sodium [Protonix] 40 mg PO QDAC 11/26/14 Clonidine HCl 0.2 mg PO BEDTIME 12/27/17 Metformin HCl 1,000 mg PO BID 12/27/17 Ropinirole HCl [Requip Xl] 3 mg PO BEDTIME 12/27/17 Disposition Discussed With: Patient, Family
--- NOTE | 2018-05-06 15:06 | DI ---
EXAM: Two views of the chest. History: Chest palpitations Comparison: Chest radiograph 07/23/2016 Findings: Heart size is upper limits of normal. No focal consolidation. No appreciable pleural flu id and no pneumothorax. No acute osseous abnormalities. Atherosclerotic vascular calcifications. Impression: No acute cardiopulmonary process. No change compared to the prior study
== END 2018-05-06 17:25 | disposition home or self-care (01) ==
LOC: ED 13:55
DX: I48.91 Unspecified atrial fibrillation (principal); R07.89 Other chest pain; R42 Dizziness and giddiness; E11.9 Type 2 diabetes mellitus without complications; E78.5 Hyperlipidemia, unspecified; I25.10 Atherosclerotic heart disease of native coronary artery without angina pectoris; I25.2 Old myocardial infarction; I10 Essential (primary) hypertension; Z79.899 Other long term (current) drug therapy
CPT/HCPCS: 36415; 80053; 82550; 84484; 85025; 85610; 93005; 93010; 99283

== ENCOUNTER 2019-02-16 16:08 | Inpatient (IN) ==
[2019-02-16] MEDS ORDERED: VASOTEC IV IVP STA (16:45)
--- NOTE | 2019-02-16 18:07 | ED.PDOC ---
General ED Provider: Dr. DONTRELL VALADEZ Chief Complaint: Hypertension Stated Complaint: hypertension at home it was at high as 200/100, arrived free of chest pain Time Seen by Physician: 16:19 Mode of Arrival: Walk-In Information Source: Patient Exam Limitations: No limitations Primary Care Provider: MAXIMILIANO GONZALEZ Nursing and Triage Documentation Reviewed and Agree: Yes Does patient meet sepsis criteria?: No If yes, has appropriate treatment been initiated?: No System Inflammatory Response Syndrome: Not Applicable Sepsis Protocol: For patient's 13 years and over: Temp is 96.8 and below OR 101 and greater Pulse >90 BPM Resp >20/minute Acutely Altered Mental Status Are patient's symptoms suggestive of a new infection, such as: -Pneumonia -Skin, Soft Tissue -Endocarditis -UTI -Bone, Joint Infection -Implantable Device -Acute Abdominal Infection -Wound Infection -Meningitis -Blood Stream Catheter Infection -Unknown Cardiovascular Complaint Exam Hypertension Complaint/Exam Onset/Duration: today Symptoms Are: Still present Timing: Constant Reported B/P Prior to Arrival: 200/100 Aggravating: Reports None Alleviating: Reports None Associated Signs and Symptoms: Denies Chest pain, Vision changes, Anxiety, Recent stress, Headache, Numbness, Tingling, Weakness, Dizziness, Short of air and Swelling Related History: 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 Related Surgical History: Reports None Cardiac Risk Factors: Reports Hypertension and Diabetes Recent Change in Medications: No A/V Nicking: No Papilledema Present: No JVD Present: No Carotid Bruit Present: No Femoral Pulses Bounding: No Differential Diagnoses: Hypertension Quality Indicator For Non-Traumatic Chest Pain/Syncope: EKG Performed Review of Systems Review Of Systems Constitutional: Reports No symptoms Eyes: Reports No symptoms Ears, Nose, Mouth, Throat: Reports No symptoms Respiratory: Reports No symptoms Cardiac: Reports No symptoms GI: Reports No symptoms : Reports No symptoms Musculoskeletal: Reports No symptoms Skin: Reports No symptoms Neurological: Reports No symptoms Endocrine: Reports No symptoms Hematologic/Lymphatic: Reports No symptoms All Other Systems: Reviewed and Negative [facility] Social History Smoking and tobacco status: Unknown if ever smoked Physical Exam Physical Exam Appearance: Well-appearing, No pain distress and Well-nourished Ill-appearing: None Pain Distress: None Eyes: NAOMIE, EOMI and Conjunctiva clear ENT: Ears normal, Nose normal and Oropharynx normal Neck: Supple Respiratory: Airway patent, Breath sounds clear, Breath sounds equal and Respirations nonlabored Cardiovascular: RRR, Pulses normal, No rub and No murmur GI/: Soft, Nontender, No masses, Bowel sounds normal and No Organomegaly Musculoskeletal: Normal strength, ROM intact, No edema and No calf tenderness Skin: Warm, Dry and Normal color Neurological: Sensation intact, Motor intact, Reflexes intact, Cranial nerves intact, Alert and Oriented Psychiatric: Affect appropriate and Mood appropriate Re-Evaluation Re-Evaluation Time of Re-Evaluation: 18:11 Status: Improved Vital Signs Stable: Yes Appearance: NAD Lungs: Clear Skin: Warm and Dry CV: RRR Physician Notification Case Discussed Physician Notified: pmd Time of Notification: 18:11 Critical Care Note Critical Care Note Total Time (mins): 0 Course Course Hematology/Chemistry: 02/16/19 16:50 02/16/19 16:50 Orders, Labs, Meds: Lab Review 02/16/19 02/16/19 02/16/19 16:50 16:50 16:50 WBC 9.27 RBC 5.20 Hgb 15.3 Hct 46.3 MCV 89.0 MCH 29.4 MCHC 33.0 RDW Coeff of Niall 13.3 Plt Count 197 Immature Gran % (Auto) 0.5 Neut % (Auto) 62.0 Lymph % (Auto) 27.0 Morris % (Auto) 7.6 Eos % (Auto) 1.8 Baso % (Auto) 1.1 Immature Gran # (Auto) 0.1 Neut # (Auto) 5.8 Lymph # (Auto) 2.5 Morris # (Auto) 0.7 Eos # (Auto) 0.2 Baso # (Auto) 0.1 PT INR APTT Sodium 137.3 Potassium 3.74 Chloride 96.7 L Carbon Dioxide 30.8 H Anion Gap 13.54 BUN 24.4 H Creatinine 1.53 H Estimated GFR (MDRD) 45.00 BUN/Creatinine Ratio 15.94 Glucose 270.7 H Calcium 9.58 Total Bilirubin 0.57 AST 21.4 ALT 18.8 Alkaline Phosphatase 129.7 H Total Creatine Kinase 62.9 Troponin I < 0.012 Total Protein 7.81 Albumin 4.44 Globulin 3.37 Albumin/Globulin Ratio 1.31 TSH 3.620 Free T4 Digoxin 02/16/19 02/16/19 02/16/19 16:50 16:50 16:50 WBC RBC Hgb Hct MCV MCH MCHC RDW Coeff of Niall Plt Count Immature Gran % (Auto) Neut % (Auto) Lymph % (Auto) Morris % (Auto) Eos % (Auto) Baso % (Auto) Immature Gran # (Auto) Neut # (Auto) Lymph # (Auto) Morris # (Auto) Eos # (Auto) Baso # (Auto) PT 39.5 H INR 4.38 H* APTT 44.6 H Sodium Potassium Chloride Carbon Dioxide Anion Gap BUN Creatinine Estimated GFR (MDRD) BUN/Creatinine Ratio Glucose Calcium Total Bilirubin AST ALT Alkaline Phosphatase Total Creatine Kinase Troponin I Total Protein Albumin Globulin Albumin/Globulin Ratio TSH Free T4 1.39 Digoxin 0.65 L Orders Category Date Time Status EKG-(ED ONLY) Stat CARDIO 02/16/19 16:34 Completed CBC W/ AUTO DIFF Stat LAB 02/16/19 16:50 Completed COMPREHENSIVE METABOLIC PANEL Stat LAB 02/16/19 16:50 Completed CREATINE KINASE Stat LAB 02/16/19 16:50 Completed DIGOXIN Stat LAB 02/16/19 16:50 Completed FREE T4 (FREE THYROXINE) Stat LAB 02/16/19 16:50 Completed PARTIAL THROMBOPLASTIN TIME Stat LAB 02/16/19 16:50 Completed PT WITH INR Stat LAB 02/16/19 16:50 Completed THYROID STIMULATING HORMONE Stat LAB 02/16/19 16:50 Completed TROPONIN I Stat LAB 02/16/19 16:50 Completed Enalaprilat Dihydrate [Vasotec IV] MEDS 02/16/19 16:45 Discontinued 0.625 mg IVP ONCE STA CHEST, 1V AP ONLY Stat RADS 02/16/19 16:34 Taken Medications Discontinued Medications Generic Name Dose Route Start Last Admin Trade Name Freq PRN Reason Stop Dose Admin Enalaprilat 0.625 mg 02/16/19 16:45 02/16/19 16:55 Vasotec Iv IVP 02/16/19 16:46 0.625 mg ONCE STA Administration Vital Signs: Temp Pulse Resp BP Pulse Ox 02/16/19 16:08 98.0 F 73 20 182/84 H 95 TERRENCE Risk Score TERRENCE Risk Score: Risk Score Odds of by 30D 0 0.1 (0.1-0.2) 1 0.3 (0.2-0.3) 2 0.4 (0.3-0.5) 3 0.7 (0.6-0.9) 4 1.2 (1.0-1.5) 5 2.2 (1.9-2.6) 6 3.0 (2.5-3.6) 7 4.8 (3.8-6.1)
[2019-02-16 20:06] VITALS: BMI 41.3
[2019-02-16] MEDS ORDERED: LOPRESSOR PO SCH (21:00)
[2019-02-16] MEDS: SODIUM CHLORIDE 1,000 ML IV SCH (21:20)
[2019-02-16] MEDS: LANTUS SUBCUT SCH (21:21)
[2019-02-16] MEDS: PRAVACHOL PO SCH (21:24)
[2019-02-16] MEDS: XANAX PO PRN (21:24)
[2019-02-16] MEDS: CATAPRES PO SCH (21:24)
[2019-02-16] MEDS: ROPINIROLE 3 MG PO SCH (21:25)
[2019-02-16] MEDS: NEURONTIN PO SCH (22:44)
[2019-02-16] MEDS: FLOMAX PO SCH (22:44)
[2019-02-17] MEDS: SYNTHROID PO SCH (05:35)
[2019-02-17] MEDS: PROTONIX PO SCH (05:35)
[2019-02-17] MEDS: LASIX TAB PO SCH (05:35)
--- NOTE | 2019-02-17 07:51 | DI ---
EXAM: Frontal chest HISTORY: Cough. FINDINGS: Compared to 05/06/2018. Prominent heart size is stable. No acute infiltrates are seen. No vascular congestion. There is no consolidation, visible pleural fluid or pneumothorax. Bones rev eal no acute fracture. IMPRESSION: No acute cardiopulmonary process.
[2019-02-17] MEDS ORDERED: FLOMAX PO SCH (09:00)
[2019-02-17] MEDS ORDERED: LANOXIN PO SCH (09:00)
--- NOTE | 2019-02-17 09:07 | PCM.PROG ---
Attending Provider: ATTENDING PROVIDER: Dr. MAXIMILIANO GONZALEZ This patient is seen with Radha Escobar, Nurse Practitioner. DATE OF SERVICE: 02/17/19 SUBJECTIVE: This 73 year old /WHITE M was hospitalized 02/16/19. The patient is resting comfortably. Blood pressure still elevated. Blood pressure has been high for several days according to him and his . He has been getting dizzy past several weeks and more tired. Telemetry shows some pauses during the night. REVIEW OF SYSTEMS: CONSTITUTIONAL: No night sweats. Fatigue. No fever or chills. HEENT: Eyes: No visual changes. No eye pain. No eye discharge. ENT: No runny nose. No epistaxis. No sinus pain. No odynophagia. No congestion. RESPIRATORY: No cough, no congestion. No hemoptysis. No shortness of breath. CARDIOVASCULAR: No angina symptoms. No CHF symptoms. No atypical chest pain for CAD. No palpitations. No orthopnea.. GASTROINTESTINAL: No abdominal pain. No nausea or vomiting. No diarrhea or constipation. No hematemesis. No hematochezia. GENITOURINARY: No urgency. No frequency. No dysuria. No hematuria. No obstructive symptoms. No discharge. No pain. No significant abnormal bleeding. MUSCULOSKELETAL: No musculoskeletal pain; no joint swelling. NEUROLOGICAL: Awake, alert, oriented to time, place and person. No headache. No neck pain. No syncope. No seizures. Dizziness. PSYCHIATRIC: Not anxious. No depression. No suicidal thoughts. No homicidal thoughts. SKIN: No rash. No lesions. No wounds. ENDOCRINE: No unexplained weight loss. No weight gain. HEMATOLOGIC/LYMPHATIC: No anemia. No purpura. No petechiae. No prolonged or excessive bleeding. No palpable lymph nodes. PHYSICAL EXAMINATION: GENERAL: The patient is awake, alert and oriented, lying in bed in no distress. VITAL SIGNS: Temperature 97.6 F, Pulse 53, Respiratory Rate 20, BP 152/84, Pulse Ox 96% HEENT: Head normocephalic, atraumatic. Eyes: Extraocular muscles are intact. Pupils are equal, round and reactive to light and accommodation. Ears: No lesions. Nose appeared normal. Throat: No exudate or erythema. NECK: Supple. No JVD, no carotid bruit. No lymphadenopathy or thyromegaly. LUNGS: Diminished breath sounds. Clear to auscultation. Percussion note normal. Chest symmetrical. HEART: S1, S2, no S3. Irregular heart rate No murmurs. No cyanosis or clubbing. No ascites. Pulses: Dorsalis pedis and posterior tibial pulses +1 to +2 both sides. ABDOMEN: Soft. Non-tender. Bowel sounds active. No CVA tenderness. No mass felt. EXTREMITIES: No edema. Full range of motion of all extremities, equal. NEUROLOGIC: No focal deficit. Cranial nerves II through XII are grossly intact. No headache, no double vision or headache. SKIN: Not dry. Intact. Turgor-normal. LYMPHATIC: No palpable lymph nodes/no lymphedema. MUSCULOSKELETAL: Normal joints with no swelling. Muscle tone is normal. LAB REVIEW: 02/17/19 04:20 02/17/19 04:20 02/17/19 04:20: Sodium 138.0, Potassium 3.74, Chloride 97.0 L, Carbon Dioxide 34.5 H, Anion Gap 10.24, BUN 23.5 H, Creatinine 1.36 H, Estimated GFR (MDRD) 51.00, BUN/Creatinine Ratio 17.27, Glucose 201.8 H D, Calcium 9.36, Total Bilirubin 0.60, AST 21.7, ALT 17.6, Alkaline Phosphatase 104.9, Total Protein 7.08, Albumin 3.99, Globulin 3.09, Albumin/Globulin Ratio 1.29 02/17/19 04:20: PT 35.8 H, INR 3.94 H 02/17/19 04:20: WBC 9.06, RBC 5.05, Hgb 14.8, Hct 45.3, MCV 89.7, MCH 29.3, MCHC 32.7, RDW Coeff of Niall 13.6, Plt Count 177, Immature Gran % (Auto) 0.7, Neut % (Auto) 60.4, Lymph % (Auto) 26.0, Kidder % (Auto) 10.0, Eos % (Auto) 1.9, Baso % (Auto) 1.0, Immature Gran # (Auto) 0.1, Neut # (Auto) 5.5, Lymph # (Auto) 2.4, Kidder # (Auto) 0.9, Eos # (Auto) 0.2, Baso # (Auto) 0.1 02/17/19 00:25: Total Creatine Kinase 51.3 L, Troponin I < 0.012 02/16/19 16:50: Free T4 1.39 02/16/19 16:50: PT 39.5 H, INR 4.38 H*, APTT 44.6 H 02/16/19 16:50: Digoxin 0.65 L 02/16/19 16:50: TSH 3.620 02/16/19 16:50: Sodium 137.3, Potassium 3.74, Chloride 96.7 L, Carbon Dioxide 30.8 H, Anion Gap 13.54, BUN 24.4 H, Creatinine 1.53 H, Estimated GFR (MDRD) 45.00, BUN/Creatinine Ratio 15.94, Glucose 270.7 H, Calcium 9.58, Total Bilirubin 0.57, AST 21.4, ALT 18.8, Alkaline Phosphatase 129.7 H, Total Creatine Kinase 62.9, Troponin I < 0.012, Total Protein 7.81, Albumin 4.44, Globulin 3.37, Albumin/Globulin Ratio 1.31 02/16/19 16:50: WBC 9.27, RBC 5.20, Hgb 15.3, Hct 46.3, MCV 89.0, MCH 29.4, MCHC 33.0, RDW Coeff of Niall 13.3, Plt Count 197, Immature Gran % (Auto) 0.5, Neut % (Auto) 62.0, Lymph % (Auto) 27.0, Kidder % (Auto) 7.6, Eos % (Auto) 1.8, Baso % (Auto) 1.1, Immature Gran # (Auto) 0.1, Neut # (Auto) 5.8, Lymph # (Auto) 2.5, Kidder # (Auto) 0.7, Eos # (Auto) 0.2, Baso # (Auto) 0.1 ASSESSMENT: Please see below. 1. Uncontrolled hypertension 2. Atrial fibrillation 3. Bradycardia 4. Chronic kidney disease, stage 3 5. Diabetes Mellitus type 2 PLAN: 1. Daily INR 2. Bilateral carotid scan 3. Hold Digoxin 4. Hold Coumadin Plan and coordination of the patient's care discussed in the presence of Security Escort and nurse. SCRIBED BY: Nita DELGADO scribed while in presence of service performed by Dr. Gonzalez/Radha Escobar APRN on 02/17/19 ([id number])
[2019-02-17] MEDS: FLOMAX PO SCH (09:48)
[2019-02-17] MEDS: CATAPRES PO SCH ×2 (09:49→20:49)
[2019-02-17] MEDS: NORVASC PO SCH (09:49)
[2019-02-17] MEDS: COREG PO SCH ×2 (09:50→17:27)
[2019-02-17] MEDS: COZAAR PO SCH (09:50)
[2019-02-17] MEDS: SODIUM CHLORIDE 1,000 ML IV SCH ×2 (09:53→22:35)
--- NOTE | 2019-02-17 11:25 | US ---
EXAM: Bilateral carotid artery Doppler History: Dizziness and hypertension. Comparison: Carotid Doppler 03/15/2016 Technique: Multiple sonographic images through the bilateral internal carotid arteries were obtained . Color duplex Doppler was used to interrogate vascular flow. Findings: The right ICA peak systolic velocity is moderately elevated measuring 135 cm/sec. The right ICA/cca PSV ratio is normal at 1.1. The right vertebral artery is patent and demonstrates antegrade flow. T here is a moderate plaque buildup within the proximal right internal carotid artery. The left ICA peak systolic velocity is within normal limits measuring 92 cm/sec. The left ICA/cca PS V ratio is normal at 1.1. The left vertebral artery is patent and demonstrates antegrade flow. Ther e is mild to moderate plaque buildup within the proximal left internal carotid artery. Impression: 1. Moderate, 50-69% hemodynamic stenosis of the right internal carotid artery. 2. No significant hemodynamic stenosis of the left internal carotid artery
--- NOTE | 2019-02-17 13:02 | PN ---
DATE OF SERVICE: 02/16/19 - ADMISSION NOTE SUBJECTIVE: Mr. Corado called this morning reported his blood pressure to be in the range of 200 systolic and leg swelling. The patient was then advised to go to the emergency room where the ER physician checked the patient out and found to have a blood pressure systolic of more than 170 after he was given Vasotec IV. The patient's EKG was described as some changes in the inferior leads with T wave inversion. The patient's cardiac markers are negative. He doesn't have any chest pain. CT of the chest as usual showed atelectasis versus pneumonia. Clinically, the patient does not have any symptoms or signs of even bronchitis. In any case, the patient is going to be hospitalized and watched with cardiac markers, serial EKGs and for better control of his blood pressure. His condition for now is stable. TIME SPENT: More than 30 minutes. Plan and coordination of the patient's care discussed in the presence of nurse. PETER
--- NOTE | 2019-02-17 13:33 | PN ---
DATE OF SERVICE: 02/17/19 SUBJECTIVE: The patient was seen and examined with the nurse practitioner. The patient's medications were all messed up from home list. The patient is going to be on Lanoxin 0.125 instead of 0.25 but for now it is going to be held. He had bradyarrhythmias with some pauses noted, not greater than 3 seconds. The patient is asymptomatic. EKG changes are mostly strain pattern and/or chronic. Cardiovascular status is stable. The patient was seen and examined with the nurse practitioner. The patient's condition is stable. TIME SPENT: More than 30 minutes. ADDENDUM; Mr. Corado was not on Cardene drip or Minoxidil but the patient was not started on Losartan. He will be starting on Losartan 100 mg, Norvasc 5 mg is going to be added to it. Metoprolol will be changed to Coreg 12.5 mg twice a day. Lanoxin is going to be discontinued. Plan and coordination of the patient's care discussed in the presence of nurse. PETER
[2019-02-17] MEDS ORDERED: TYLENOL PO PRN (15:18)
[2019-02-17] MEDS: PRAVACHOL PO SCH (20:49)
[2019-02-17] MEDS: NEURONTIN PO SCH (20:50)
[2019-02-17] MEDS: LANTUS SUBCUT SCH (20:52)
[2019-02-17] MEDS: ROPINIROLE 3 MG PO SCH (20:55)
[2019-02-17] MEDS ORDERED: NEURONTIN PO SCH (21:00)
[2019-02-17] MEDS: XANAX PO PRN (23:57)
[2019-02-18] MEDS: LASIX TAB PO SCH (05:51)
[2019-02-18] MEDS: SYNTHROID PO SCH (05:51)
[2019-02-18] MEDS: PROTONIX PO SCH (05:51)
[2019-02-18] MEDS: COZAAR PO SCH (09:09)
[2019-02-18] MEDS: CATAPRES PO SCH ×2 (09:09→20:44)
[2019-02-18] MEDS: NORVASC PO SCH (09:09)
--- NOTE | 2019-02-18 09:25 | HP ---
DATE OF SERVICE: 02/16/19 HISTORY OF PRESENT ILLNESS: 73-year-old white male who presents to the emergency room with hypertension, systolic 200/100 at home. No chest pain. PAST MEDICAL HISTORY: Chronic kidney disease, Stage 3 of 4, has seen Dr. Gilmore Morbid obesity Cerebral atrophy Atrial fibrillation on Coumadin Restless leg Dizziness Diabetes mellitus type 2, uncontrolled Hypertension BPH Dyslipidemia COPD, sees Dr. Cooper yearly Sleep apnea, wears C-PAP GERD Bilateral nephrolithiasis Diabetic neuropathy Noncompliance with diet, meds, lifestyle and medication PAST SURGICAL HISTORY: Status post cholecystectomy REVIEW OF SYSTEMS: CONSTITUTIONAL: Positive for fatigue, dizziness. No night sweats. No malaise, lethargy. No fever or chills. HEENT: Eyes: No visual changes. No eye pain. No eye discharge. ENT: No runny nose. No epistaxis. No sinus pain. No sore throat. No odynophagia. No ear pain. No congestion. RESPIRATORY: No cough, no congestion. No hemoptysis. No shortness of breath. CARDIOVASCULAR: No angina symptoms. No CHF symptoms. No atypical chest pain for CAD. No palpitations. No PND. No orthopnea. GASTROINTESTINAL: No abdominal pain. No nausea or vomiting. No diarrhea or constipation. No hematemesis. No hematochezia. GENITOURINARY: No urgency. No frequency. No dysuria. No hematuria. No obstructive symptoms. No discharge. No pain. No significant abnormal bleeding. MUSCULOSKELETAL: No musculoskeletal pain. No joint swelling. No arthritis. NEUROLOGICAL: No headache. No neck pain. No syncope. No seizures. No dizziness. PSYCHIATRIC: Not anxious. No depression. No suicidal thoughts. No homicidal thoughts. SKIN: No rash. No lesions. No wounds. ENDOCRINE: No unexplained weight loss. No weight gain. HEMATOLOGIC/LYMPHATIC: No anemia. No purpura. No petechiae. No prolonged or excessive bleeding. No palpable lymph nodes. PERSONAL/FAMILY/SOCIAL HISTORY: He is , lives at home with his . No alcohol or illicit drug use. MEDICATIONS: (HOME - TAKEN FROM MAY) Coumadin 6 mg p.o. daily Pravastatin 40 mg p.o. bedtime Alprazolam 0.5 mg p.o. bedtime p.r.n. Tamsulosin 0.4 mg p.o. daily Glargine (Lantus Solostar) 120 unit SQ bedtime Pantoprazole 40 mg p.o. q.d a.c. Levothyroxine 25 mcg p.o. q.d a.c. Metoprolol 100 mg p.o. daily Furosemide 20 mg p.o. q.d a.c. Metformin 1,000 mg p.o. b.i.d. with meal Ropinirole 3 mg p.o. 1400 Clonidine HCI 0.2 mg p.o. bedtime Clonidine 0.1 mg p.o. q.a.m. Gabapentin 300 mg p.o. bedtime Losartan 100 mg p.o. daily Digoxin 125 mcg p.o. daily ALLERGIES: NKDA PHYSICAL EXAMINATION: VITAL SIGNS: Temperature 98, heart rate 73, respirations 20, blood pressure 182/84, pulse ox 95%. HEENT: Head normocephalic, atraumatic. Eyes: Extraocular muscles are intact. Pupils are equal, round and reactive to light and accommodation. Ears: No lesions. Nose appeared normal. Throat: No exudate or erythema. NECK: Supple. No JVD, no carotid bruit. No lymphadenopathy or thyromegaly. LUNGS: Diminished breath sounds bilaterally. Clear to auscultation. Percussion note normal. Chest symmetrical. HEART: S1, S2, no S3. No murmur. No cyanosis or clubbing. No ascites. Pulses: Dorsalis pedis and posterior tibial pulses +1 to +2 bilaterally. ABDOMEN: Soft. Nontender. Bowel sounds active. No CVA tenderness. No mass felt. EXTREMITIES: No leg edema. Full range of motion of all extremities, equal. NEUROLOGIC: No focal deficit. Cranial nerves II through XII are grossly intact. No headache, no double vision or headache. SKIN: Not dry. Intact. Turgor - normal. LYMPHATIC: No palpable lymph nodes/no lymphedema. MUSCULOSKELETAL: Normal joints with no swelling. Muscle tone is normal. Chest x-ray shows no acute process. White count 9.2, hemoglobin 15.3, hematocrit 46.3, platelets 197. Sodium 137, potassium 3.7, BUN 24, creatinine 1.5, glucose 270, AST 21, ALT 18, alkaline phosphatase 129, TSH 3.6, INR 4.3, digoxin 0.65, Free T4 1.39. ASSESSMENT: 1. HYPERTENSIVE EMERGENCY 2. DIZZINESS 3. ATRIAL FIBRILLATION 4. CHRONIC KIDNEY DISEASE, STAGE 3 5. DIABETES MELLITUS TYPE 2, UNCONTROLLED 6. OBESITY PLAN: 1. We will admit to Special Care. 2. Routine telemetry orders. 3. CBC, CMP daily. 4. INR daily. 5. Hold Coumadin for tonight. 6. NS at 75 cc/hr IV. 7. Vasotec 1.25 IV q.6hr p.r.n. 8. Home medications reconciled. 9. Bilateral carotid scan. 10. Regular diet. 11. Follow closely. TIME SPENT: More than 70 minutes. MTDD
[2019-02-18] MEDS: COREG PO SCH ×2 (09:59→17:30)
[2019-02-18] MEDS: LANTUS SUBCUT SCH (09:59)
[2019-02-18] MEDS: FLOMAX PO SCH (09:59)
[2019-02-18] MEDS: SODIUM CHLORIDE 1,000 ML IV SCH (11:48)
--- NOTE | 2019-02-18 13:06 | US ---
EXAM: Renal ultrasound History: Hypertension. Technique: Multiple sonographic images through the kidneys were obtained. Color duplex Doppler was used to interrogate vascular flow. Findings: Only the left ureteral jet is seen in the bladder. No focal bladder wall thickening. The right kidney measures 11.8 cm in long length demonstrating normal cortical echogenicity without e vidence for hydronephrosis or shadowing calculus. 1.9 cm cyst within the superior pole. The left kidney measures 11.5 cm in long length demonstrating normal cortical echogenicity without ev idence for hydronephrosis, mass or shadowing calculus. Impression: A simple right renal cyst. Examination is otherwise unremarkable
--- NOTE | 2019-02-18 13:15 | US ---
EXAM: Renal artery duplex Doppler HISTORY: Hypertension FINDINGS: Renal artery duplex Doppler. Rhoades-scale ultrasound, color Doppler imaging and spectral an alysis performed. Aortic velocity (meters per second): 1.0 Aortic diameter: 2.5 cm. IVC: Open Renal veins: Open The right kidney measured 11.7 cm and the left kidney 11.4 cm. Right renal artery peak systolic velocities (meters per second). Origin: - (Not identified) Mid: 1.1 Renal Hilum: 1.0 Right renal artery/Aortic Ratios: Origin: - Mid: 1.1 Renal Hilum: 1.0 Left renal artery peak systolic velocities (meters per second). Origin: - Mid: - Renal Hilum: 0.4 Left renal artery/Aortic Ratios: Origin: - Mid: - Renal Hilum: 0.4 Right renal resistive index was no data Left renal resistive index was 0.7 IMPRESSION: Apparent nondiagnostic exam at multiple levels secondary to excessive bowel gas accordin g to technologist notes. The velocities recorded were within normal limits.
[2019-02-18] MEDS: PRAVACHOL PO SCH (20:45)
[2019-02-18] MEDS: NEURONTIN PO SCH (20:45)
[2019-02-18] MEDS ORDERED: LANTUS SUBCUT SCH (21:00)
[2019-02-18] MEDS: ROPINIROLE 3 MG PO SCH (21:11)
[2019-02-19] MEDS: XANAX PO PRN (01:02)
[2019-02-19] MEDS: SODIUM CHLORIDE 1,000 ML IV SCH (05:05)
[2019-02-19] MEDS: SYNTHROID PO SCH (05:39)
[2019-02-19] MEDS: PROTONIX PO SCH (05:39)
[2019-02-19] MEDS: LASIX TAB PO SCH (05:39)
[2019-02-19] MEDS: COZAAR PO SCH (09:43)
[2019-02-19] MEDS: NORVASC PO SCH (09:43)
[2019-02-19] MEDS: COREG PO SCH (09:43)
[2019-02-19] MEDS: K-DUR PO SCH ×3 (09:43→11:50)
[2019-02-19] MEDS: FLOMAX PO SCH (09:43)
[2019-02-19] MEDS: LANTUS SUBCUT SCH (09:44)
[2019-02-19] MEDS: CATAPRES PO SCH (09:44)
[2019-02-19 13:59] VITALS: BP 140/68; TEMP 98.1
--- NOTE | 2019-02-19 14:21 | ECHO2D ---
Date of Exam: 02/18/19 Ordering Physician: DR. MAXIMILIANO GONZALEZ Room #: 120 Reason for Echo: DIZZINESS, HYPERTENSION, HX A FIB M-Mode Normal Adult Results LV Dimensions Normal Adult Results AoV Opening excursions >1.6 >1.6 LVEDD-base- 3.5-5.8 5.3 Ao root dimensions 2.0-3.7 3.3 LVESD-base- 3.1-4.6 L. Atrium dimensions 1.9-3.8 5.9 Post. Wall thickness 0.8-1.1 1.3 IV septum (thickness) 0.7-1.2 1.3 Post. Wall excursion 0.72-1.3 NORMAL Septal motion NORMAL Systolic motion R. Ventricular cavity 1.5-2.0 NORMAL LVEF 60% 62% Paradoxical septal wall motion NORMAL 2-D : 2-D M Mode Echocardiogram was performed using apical four chamber and left parasternal long and short axis views. Mitral, tricuspid and aortic valves appear to be normal. Contractility of the left ventricle seems to be normal, so is the cavity size. ENLARGED LEFT ATRIAL CAVITY. Aortic root appears to be normal. There is no pericardial effusion. There is no thrombus noted in the left ventricle or left atrial cavity. No mitral valve prolapse noted. M-MODE: MV: NORMAL AV: NORMAL TV: NORMAL PV: CHAMBER SIZE: ENLARGED LEFT ATRIAL CAVITY WALL MOTION: NORMAL PERICARDIUM: NORMAL INTERPRETATION: 1. LEFT VENTRICULAR HYPERTROPHY WITH MARKEDLY ENLARGED LEFT ATRIAL CAVITY (5.9 CM) 2. NORMAL LEFT VENTRICULAR CONTRACTILITY 3. NORMAL VALVES MTDD
--- NOTE | 2019-02-19 14:44 | CM.DICTOOL ---
ADMISSION: 02/16/19 18:21 DISCHARGE: FEBRUARY 19/2019 DATE OF SERVICE: 02/19/19 FINAL DIAGNOSIS UNCONTROLLED HYPERTENSION ATRIAL FIBRILLATION BRADYCARDIA CHRONIC KIDNEY DISEASE, STAGE 3 DIABETES MELLITUS TYPE 2 HYPOKALEMIA HX: ENLARGED HEART A-FIB CAD ANGINA OLD CA HYPERLIPIDEMIA ESSENTIAL HYPERTENSION PNEUMONIA ACUTE BRONCHITIS, UNSPECIFIED SEPSIS FROM DIALYSIS COMPLICATION HYPOTHYROIDISM NEUROPATHY FEMUR FX, LT PROCEDURES AND SURGERIES: CHOLECYSTECTOMY RENAL DIALYSIS LT KNEE 02/17/19 U/S CAROTID DOPPLER : Moderate, 50-69% hemodynamic stenosis of the right internal carotid artery. No significant hemodynamic stenosis of the left internal carotid artery 02/18/2019 U/S RENAL DOPPLER: Apparent nondiagnostic exam at multiple levels secondary to excessive bowel gas according to technologist notes. The velocities recorded were within normal limits. 02/18/2019 U/S KIDNEYS: Technique: Multiple sonographic images through the kidneys were obtained. Color duplex Doppler was used to interrogate vascular flow. Findings: Only the left ureteral jet is seen in the bladder. No focal bladder wall thickening. The right kidney measures 11.8 cm in long length demonstrating normal cortical echogenicity without evidence for hydronephrosis or shadowing calculus. 1.9 cm cyst within the superior pole. The left kidney measures 11.5 cm in long length demonstrating normal cortical echogenicity without evidence for hydronephrosis, mass or shadowing calculus. Impression: A simple right renal cyst. Examination is otherwise unremarkable. LAST VITALS Temp Pulse Resp BP Pulse Ox 98.0 F 77 18 140/73 95 02/19/19 10:00 02/19/19 10:00 02/19/19 10:00 02/19/19 10:00 02/19/19 10:00 TAKE THESE MEDICATIONS AT HOME Alprazolam (Xanax) 0.5 mg PO BEDTIME PRN PRN Reason: Anxiety Last Admin: 02/19/19 01:02 Dose: 0.5 mg Documented by: Amlodipine Besylate (Norvasc) 5 mg PO DAILY [facility] ([facility]) Last Admin: 02/19/19 09:43 Dose: 5 mg Documented by: Carvedilol (Coreg) 12.5 mg PO BIDWM [facility] ([facility]) Last Admin: 02/19/19 09:43 Dose: 12.5 mg Documented by: Clonidine (Catapres) 0.2 mg PO BEDTIME [facility] Last Admin: 02/18/19 20:44 Dose: 0.2 mg Documented by: Clonidine (Catapres) 0.1 mg PO DAILY [facility] Last Admin: 02/19/19 09:44 Dose: 0.1 mg Documented by: Furosemide (Lasix Tab) 20 mg PO QDAC [facility] Last Admin: 02/19/19 05:39 Dose: 20 mg Documented by: Gabapentin (Neurontin) 300 mg PO BEDTIME [facility] Last Admin: 02/18/19 20:45 Dose: 300 mg Documented by: Insulin Glargine (Lantus) 50 unit SUBCUT BEDTIME [facility] (CHANGED) Last Admin: 02/18/19 20:51 Dose: 50 unit Documented by: Insulin Glargine (Lantus) 70 unit SUBCUT DAILY [facility] ( CHANGED) Last Admin: 02/19/19 09:44 Dose: 70 unit Documented by: Levothyroxine Sodium (Synthroid) 25 mcg PO QDAC [facility] Last Admin: 02/19/19 05:39 Dose: 25 mcg Documented by: Losartan Potassium (Cozaar) 100 mg PO DAILY [facility] Last Admin: 02/19/19 09:43 Dose: 100 mg Documented by: Non-Formulary Medication (Ropinirole [Requip Xl]) 3 mg PO BEDTIME [facility] Pantoprazole Sodium (Protonix) 40 mg PO QDAC [facility] Last Admin: 02/19/19 05:39 Dose: 40 mg Documented by: Pravastatin Sodium (Pravachol) 40 mg PO BEDTIME [facility] Last Admin: 02/18/19 20:45 Dose: 40 mg Documented by: Tamsulosin HCl (Flomax) 0.4 mg PO DAILY [facility] Last Admin: 02/19/19 09:43 Dose: Not Given Documented by: Warfarin Sodium (Coumadin) 6 mg PO QPM [facility] ALLERGIES No Known Allergies Allergy (Verified 02/16/19 16:13) DISCONTINUED MEDICATIONS LOPRESSOR DIGOXIN NEW PRESCRIPTIONS: NORVASC 5 MG PO DAILY COREG 12.5 MG PO BID LANTUS 70 UNITS SQ IN THE AM LANTUS 50 UNITS SQ IN THE PM SMOKING: NON-APPLICABLE DISEASE SPECIFIC EDUCATION: HYPERTENSION BRADYCARDIA WARFARIN USE ANDTOXICITY HYPOKALEMIA LAB REVIEW: 02/19/19 04:53 02/19/19 04:53 02/19/19 04:53: Sodium 137.1, Potassium 3.14 L, Chloride 100.6, Carbon Dioxide 30.3 H, Anion Gap 9.34, BUN 17.5, Creatinine 1.31 H, Estimated GFR (MDRD) 53.00, BUN/Creatinine Ratio 13.35, Glucose 87.6 D, Calcium 8.94, Total Bilirubin 0.89, AST 16.2 L, ALT 14.3, Alkaline Phosphatase 93.2, Total Protein 7.07, Albumin 3.93, Globulin 3.14, Albumin/Globulin Ratio 1.25 02/19/19 04:53: PT 15.4 H D, INR 1.61 02/19/19 04:53: WBC 7.96, RBC 4.90, Hgb 14.4, Hct 44.0, MCV 89.8, MCH 29.4, MCHC 32.7, RDW Coeff of Niall 13.6, Plt Count 173, Immature Gran % (Auto) 0.4, Neut % (Auto) 61.5, Lymph % (Auto) 25.6, [place] % (Auto) 9.8, Eos % (Auto) 1.9, Baso % (Auto) 0.8, Immature Gran # (Auto) 0.0, Neut # (Auto) 4.9, Lymph # (Auto) 2.0, [place] # (Auto) 0.8, Eos # (Auto) 0.2, Baso # (Auto) 0.1 PLAN: DISCHARGE HOME DIET: 1800 ADA ACTIVITY : UP AD ROJELIO. FREQUENT REST PERIODS CHECK BLOOD SUGARS TWICE DAILY, BEFORE BREAKFAST AND AT BEDTIME, AND NEEDED FOLLOW UP WITH DR. GONZALEZ/KYLER COYLE APRN IN THE OFFICE ON Saturday02/25/19 @ 1015. CODE STATUS: FULL CODE MR. IRENE REMAINS ALERT AND ORIENTED X 4. PLEASANT. NO COMPLAINTS. CAME THROUGH ED 02/16/2019 WITH HYPERTENSION URGENCY AND WARFARIN TOXICITY. WAS GIVEN VASOTEC IV IN ED. NS AT 75 ML/HR. DIGOXIN AND LOPRESSOR STOPPED DUE TO LOW HEART RATES. BLOOD PRESSURES IMPROVED AFTER STARTING NORVASC AND COREG. LANTUS CHANGED 70 UNITS IN AM AND 50 UNITS AT BEDTIME DUE TO INCREASED BLOOD SUGARS. APPETITE AND ORAL INTAKE GOOD. MD KYLER CROSS, [employer] CONTROL REPRESENTATIVE
[2019-02-19] MEDS ORDERED: COUMADIN PO SCH (17:00)
[2019-02-19] MEDS ORDERED: ROPINIROLE 3 MG PO SCH (21:00)
--- NOTE | 2019-02-20 13:07 | DS ---
DATE OF SERVICE: 02/19/19 FINAL DIAGNOSIS: 1. UNCONTROLLED HYPERTENSION 2. ATRIAL FIBRILLATION 3. BRADYCARDIA 4. CHRONIC KIDNEY DISEASE, STAGE 3 5. DIABETES MELLITUS TYPE 2 6. HYPOKALEMIA 7. HISTORY OF ENLARGED HEART 8. A-FIB 9. CAD 10.ANGINA 11.OLD SC 12.HYPERLIPIDEMIA 13.ESSENTIAL HYPERTENSION 14.PNEUMONIA 15.ACUTE BRONCHITIS, UNSPECIFIED 16.SEPSIS FROM DIALYSIS COMPLICATION 17.HYPOTHYROIDISM 18.NEUROPATHY 19.FEMUR FX, LT 20.CHOLECYSTECTOMY 21.RENAL DIALYSIS 22.LT KNEE 23.02/17/19 U/S CAROTID DOPPLER : Moderate, 50-69% hemodynamic stenosis of the right internal carotid artery. No significant hemodynamic stenosis of the left internal carotid artery. 24.02/18/2019 U/S RENAL DOPPLER: Apparent nondiagnostic exam at multiple levels secondary to excessive bowel gas according to technologist notes. The velocities recorded were within normal limits. 25.02/18/2019 U/S KIDNEYS: Technique: Multiple sonographic images through the kidneys were obtained. Color duplex Doppler was used to interrogate vascular flow. Findings: Only the left ureteral jet is seen in the bladder. No focal bladder wall thickening. The right kidney measures 11.8 cm in long length demonstrating normal cortical echogenicity without evidence for hydronephrosis or shadowing calculus. 1.9 cm cyst within the superior pole. The left kidney measures 11.5 cm in long length demonstrating normal cortical echogenicity without evidence for hydronephrosis, mass or shadowing calculus. Impression: A simple right renal cyst. Examination is otherwise unremarkable. LAST VITALS: Temp Pulse Resp BP Pulse Ox 98.0 F 77 18 140/73 95 02/19/19 10:00 02/19/19 10:00 02/19/19 10:00 02/19/19 10:00 02/19/19 10:00 DISCHARGE INSTRUCTIONS: DISCHARGE HOME. FOLLOW UP WITH DR. GONZALEZ/KYLER COYLE APRN IN THE OFFICE ON Saturday02/25/19 @ 7815. CODE STATUS: FULL CODE. TAKE THESE MEDICATIONS AT HOME: Alprazolam (Xanax) 0.5 mg PO BEDTIME PRN PRN Reason: Anxiety Last Admin: 02/19/19 01:02 Dose: 0.5 mg Documented by: Amlodipine Besylate (Norvasc) 5 mg PO DAILY [facility] Last Admin: 02/19/19 09:43 Dose: 5 mg Documented by: Carvedilol (Coreg) 12.5 mg PO BIDWM [facility] Last Admin: 02/19/19 09:43 Dose: 12.5 mg Documented by: Clonidine (Catapres) 0.2 mg PO BEDTIME [facility] Last Admin: 02/18/19 20:44 Dose: 0.2 mg Documented by: Clonidine (Catapres) 0.1 mg PO DAILY [facility] Last Admin: 02/19/19 09:44 Dose: 0.1 mg Documented by: Furosemide (Lasix Tab) 20 mg PO QDAC [facility] Last Admin: 02/19/19 05:39 Dose: 20 mg Documented by: Gabapentin (Neurontin) 300 mg PO BEDTIME [facility] Last Admin: 02/18/19 20:45 Dose: 300 mg Documented by: Insulin Glargine (Lantus) 50 unit SUBCUT BEDTIME [facility] Last Admin: 02/18/19 20:51 Dose: 50 unit Documented by: Insulin Glargine (Lantus) 70 unit SUBCUT DAILY [facility] ( [facility] Last Admin: 02/19/19 09:44 Dose: 70 unit Documented by: Levothyroxine Sodium (Synthroid) 25 mcg PO QDAC [facility] Last Admin: 02/19/19 05:39 Dose: 25 mcg Documented by: Losartan Potassium (Cozaar) 100 mg PO DAILY [facility] Last Admin: 02/19/19 09:43 Dose: 100 mg Documented by: Non-Formulary Medication (Ropinirole [Requip Xl]) 3 mg PO BEDTIME [facility] Pantoprazole Sodium (Protonix) 40 mg PO QDAC [facility] Last Admin: 02/19/19 05:39 Dose: 40 mg Documented by: Pravastatin Sodium (Pravachol) 40 mg PO BEDTIME [facility] Last Admin: 02/18/19 20:45 Dose: 40 mg Documented by: Tamsulosin HCl (Flomax) 0.4 mg PO DAILY [facility] Last Admin: 02/19/19 09:43 Dose: Not Given Documented by: Warfarin Sodium (Coumadin) 6 mg PO QPM [facility] ALLERGIES: No Known Allergies Allergy (Verified 02/16/19 16:13) DISCONTINUED MEDICATIONS: LOPRESSOR DIGOXIN NEW PRESCRIPTIONS: NORVASC 5 MG PO DAILY COREG 12.5 MG PO BID LANTUS 70 UNITS SQ IN THE AM LANTUS 50 UNITS SQ IN THE PM SMOKING: NON-APPLICABLE DISEASE SPECIFIC EDUCATION: HYPERTENSION BRADYCARDIA WARFARIN USE AND TOXICITY HYPOKALEMIA DIET: 1800 ADA ACTIVITY: UP AD ROJELIO. FREQUENT REST PERIODS CHECK BLOOD SUGARS TWICE DAILY, BEFORE BREAKFAST AND AT BEDTIME, AND NEEDED HOSPITAL COURSE: 73 year old white male hospitalized with hypertensive urgency. The patient's problem is noncompliance of medications, lifestyle and recommendations. His BMI is more than 40. He eats whatever comes in his way. He doesn't take his medications on a regular basis because he forgets to take it at times. During the stay in the hospital the patient was noted to have some pauses nearly of 3 seconds. They were asymptomatic mostly he was sleeping at that time. The heart rate beating 35 per minute. The patient is taken off Lanoxin and Metoprolol 50 has been switched to 12.5mg of Coreg. Norvasc has been added. The patient is up and about doing well. On the day of discharge his blood pressure was 130/80 or less. was present in the room. His creatinine 1.3, BUN 19. The patient was discharged home in stable condition. His cardiovascular status was stable. His echo showed LVH mild to moderate with enlarged LA cavity. LV cavity it borderline. Counseling for weight loss done. CONDITION: Stable PROGNOSIS: Guarded. TIME SPENT: More than 60 minutes. MTDD
--- NOTE | 2019-02-20 13:08 | PN ---
02/16/19: LEVEL 5 02/17/19: INTERMEDIATE 02/18/19: INTERMEDIATE 02/19/19: D IN DISCHARGE MTDD
--- NOTE | 2019-02-25 14:43 | PN ---
DATE OF SERVICE: 02/18/19 SUBJECTIVE: 73 year old white male seen and examined today. The patient's condition has improved and he is feeling a lot better. His leg swelling is much down. REVIEW OF SYSTEMS: CONSTITUTIONAL: No night sweats. No fatigue, malaise, lethargy. No fever or chills. HEENT: Eyes: No visual changes. No eye pain. No eye discharge. ENT: No runny nose. No epistaxis. No sinus pain. No sore throat. No odynophagia. No congestion. RESPIRATORY: No cough, no congestion. No hemoptysis. No shortness of breath. CARDIOVASCULAR: No angina symptoms. No CHF symptoms. No atypical chest pain for CAD. No palpitations. No PND. No orthopnea. GASTROINTESTINAL: No abdominal pain. No nausea or vomiting. No diarrhea or constipation. No hematemesis. No hematochezia. GENITOURINARY: No urgency. No frequency. No dysuria. No hematuria. No obstructive symptoms. No discharge. No pain. No significant abnormal bleeding. MUSCULOSKELETAL: No musculoskeletal pain; no joint swelling. NEUROLOGICAL: No headache. No neck pain. No syncope. No seizures. No dizziness. PSYCHIATRIC: Not anxious. No depression. No suicidal thoughts. No homicidal thoughts. SKIN: No rash. No lesions. No wounds. ENDOCRINE: No unexplained weight loss. No weight gain. HEMATOLOGIC/LYMPHATIC: No anemia. No purpura. No petechiae. No prolonged or excessive bleeding. No palpable lymph nodes. PHYSICAL EXAMINATION: VITAL SIGNS: Temperature 97.6, pulse 60, respiratory rate 20, blood pressure 127/79 and pulse ox 96%. HEENT: Head normocephalic, atraumatic. Eyes: Extraocular muscles are intact. Pupils are equal, round and reactive to light and accommodation. Ears: No lesions. Nose appeared normal. Throat: No exudate or erythema. NECK: Supple. No JVD, no carotid bruit. No lymphadenopathy or thyromegaly. LUNGS:Decreased breath sounds but clear to auscultation. Percussion note normal. Chest symmetrical. HEART: S1, S2, no S3. No murmurs. the patient's rhythm strips the patient heart rate goes down into 35-40 per minute with near 3 second pauses noted and frequent. No cyanosis or clubbing. No ascites. Pulses: Dorsalis pedis and posterior tibial pulses +1 to +2 bilaterally. ABDOMEN: Soft. Nontender. Bowel sounds active. No CVA tenderness. No mass felt. EXTREMITIES: Trace edema. Full range of motion of all extremities, equal. NEUROLOGIC: No focal deficit. Cranial nerves II through XII are grossly intact. No headache, no double vision or headache. SKIN: Not dry. Intact. Turgor - normal. LYMPHATIC: No palpable lymph nodes/no lymphedema. MUSCULOSKELETAL: Normal joints with no swelling. Muscle tone is normal. LABS: Hgb 14.3, hct 43, WBC 9,200 normal differential, creatinine 1.3, BUN 19, potassium 3.5. His echo showed normal LV contractility to mild to moderate LVH with markedly enlarged LA cavity. ASSESSMENT: 1. Hypertensive urgency with blood pressure this morning being 127/80. The patient's problems is noncompliance of diet, medications and recommendations. He is very intelligent. PLAN: 1. The patient is off Metoprolol now on Coreg 2. Also off Lanoxin 3. T4 TSH is normal. 4. The patient is morbidly obese. Advised to cut down on food intake along with advised to lose a lot of weight. Bariatric referral declined. 5. Change in the medication seems to be helping his blood pressure and help him feel better. I think that his bradyarrhythmias may improved. TIME SPENT: More than 30 minutes. Plan and coordination of the patient's care discussed in the presence of nurse. PETER
--- NOTE | 2019-02-26 11:32 | PN ---
DATE OF SERVICE: 02/19/19 SUBJECTIVE: 73 year old white male hospitalized with hypertensive urgency. The patient's condition has improved. His blood pressure is practically normal. His rhythm atrial fibrillation with rate of 50 to 100 per minutes. No more pauses of more than 2 seconds noted. PHYSICAL EXAMINATION: VITALS: Temperature 97.6, pulse 60, respiratory rate 20, blood pressure 127/80 and pulse ox 96%. HEENT: Head normocephalic, atraumatic. Eyes: Extraocular muscles are intact. Pupils are equal, round and reactive to light and accommodation. Ears: No lesions. Nose appeared normal. Throat: No exudate or erythema. NECK: Supple. No JVD, no carotid bruit. No lymphadenopathy or thyromegaly. LUNGS: Decreased breath sounds but clear to auscultation. Percussion note normal. Chest symmetrical. HEART: S1, S2, no S3. No murmurs. No cyanosis or clubbing. No ascites. Pulses: Dorsalis pedis and posterior tibial pulses +1 to +2 bilaterally. ABDOMEN: Soft. Nontender. Bowel sounds active. No CVA tenderness. No mass felt. EXTREMITIES: No edema. Full range of motion of all extremities, equal. NEUROLOGIC: No focal deficit. Cranial nerves II through XII are grossly intact. No headache, no double vision or headache. SKIN: Not dry. Intact. Turgor - normal. LYMPHATIC: No palpable lymph nodes/no lymphedema. MUSCULOSKELETAL: Normal joints with no swelling. Muscle tone is normal. CONDITION: Stable The patient is going to be discharged home. His main problem is noncompliance with lifestyle, medications and recommendations. He eats a lot. His creatinine is 1.3, BUN 19, potassium 3.5. No evidence of CHF. TIME SPENT: More than 30 minutes. Plan and coordination of the patient's care discussed in the presence of nurse. PETER
== END 2019-02-19 15:20 | disposition home or self-care (01) | DRG 305 ==
LOC: ED 16:08 → SCU 18:21 → MEDSURG B 02-18 10:15 → EDSTATUS 02-19 07:25
PROVIDERS: ADMIT Internal Medicine; ATTEND Internal Medicine
DX: E11.9 Type 2 diabetes mellitus without complications; N18.3 Chronic kidney disease, stage 3 (moderate); E87.6 Hypokalemia; R00.1 Bradycardia, unspecified; E78.5 Hyperlipidemia, unspecified; I10 Essential (primary) hypertension; I25.10 Atherosclerotic heart disease of native coronary artery without angina pectoris; R42 Dizziness and giddiness; I48.91 Unspecified atrial fibrillation